=== PATIENT | female | born 1950 ===

== ENCOUNTER 2017-10-21 18:48 | Emergency (ER) | payer MEDICARE, OTHER ==
[~2017-10-21] VITALS: Ht 157.5 cm; Wt 83.9 kg
[2017-10-21] MEDS ORDERED: GLIP10TA13 (19:03)
[2017-10-21] MEDS ORDERED: METO-387 (19:03)
[2017-10-21] MEDS ORDERED: PRAV80TA2 (19:03)
[2017-10-21] MEDS ORDERED: METF10002 (19:03)
[2017-10-21] MEDS ORDERED: LEVO137T2 (19:03)
[2017-10-21] MEDS ORDERED: LISI10TA2 (19:03)
--- NOTE | 2017-10-21 19:08 | ED Integumentary General ---
General Chief Complaint: Bite-Animal/Human/Insect Stated Complaint: R ARM BITE Source: patient, family (grandson) Exam Limitations: no limitations History of Present Illness Date Seen by Provider: Oct 21, 2017 Time Seen by Provider: 18:59 Initial Comments Patient presents to ER by private conveyance with chief complaint that 2 days ago while carrying her groceries out from a grocery store she noticed a red swelling welt on the anterior right forearm. She does have diabetes but she does not use insulin. She's never had abscesses before. She says it started welling up eating red hot and painful. She has full sensation and use of her distal extremity. She is having no fevers or chills. She does not smoke. She has no allergies to medicines or other significant medical history. Allergies and Home Medications Allergies Coded Allergies: Penicillins (Verified Allergy, Unknown, 10/21/17) Patient Home Medication List Home Medication List Reviewed: Yes Constitutional: No chills, No diaphoresis EENTM: No ear pain, No eye pain Respiratory: No cough, No hemoptysis Cardiovascular: No chest pain, No palpitations Gastrointestinal: No abdominal pain, No nausea Genitourinary: No discharge, No dysuria Musculoskeletal: No back pain, No joint pain Skin: see HPI Past Fidwfzm-Dbgsoi-Goscun Hx Patient Social History Alcohol Use: Denies Use Recreational Drug Use: No Smoking Status: Never a Smoker Recent Foreign Travel: No Contact w/Someone Who Travel: No Physical Exam Vital Signs Vital Signs - First Documented 10/21/17 18:50 Temp 98.6 Pulse 96 Resp 18 B/P (MAP) 145/91 (109) Pulse Ox 98 O2 Delivery Room Air Capillary Refill : General Appearance: WD/WN, no apparent distress HEENT: PERRL/EOMI, normal ENT inspection, TMs normal, pharynx normal Neck: non-tender, full range of motion Cardiovascular: normal peripheral pulses, regular rate, rhythm Respiratory: no respiratory distress, no accessory muscle use Gastrointestinal: normal bowel sounds, non tender, soft Extremities: normal range of motion, normal capillary refill Neurologic/Psychiatric: alert, normal mood/affect, oriented x 3 Skin: rash (red erythematous swelling and nodule in the front anterior right upper extremity about detention down the radius with a one half senna meter nodule of induration/fluctuance consistent with abscess.) Procedures/Interventions I&D : Site: anterior right forearm Blade Size: 11 I & D Procedure: betadine prep (chlorhexidine soap water) Progress Patient's wound was cleaned thoroughly with chlorhexidine soap water and dried. We then used a 25-gauge 1 inch needle to infiltrate 2 cc and a ring block fashion around the abscess pore. When the patient was ascertained to be numb we used an 11 blade to make a cross potts incision and cut off the corners and expressed about 1-2 cc of white purulent material. Patient tolerates procedure very well. A loose gauze dressing was placed. Progress/Results/Core Measures Results/Orders My Orders Orders - SERENITY STERN Lidocaine 1% Inj 20 Ml (Xylocaine 1% Inj (10/21/17 19:15) Medications Given in ED Current Medications Medications Dose Ordered Sig/Donnie Route Start Time Stop Time Status Last Admin Dose Admin Lidocaine HCl 20 ml ONCE ONCE INJ 10/21/17 19:15 10/21/17 19:16 DC 10/21/17 19:08 20 ML Vital Signs/I&O 10/21/17 18:50 Temp 98.6 Pulse 96 Resp 18 B/P (MAP) 145/91 (109) Pulse Ox 98 O2 Delivery Room Air Progress Progress Note : Time: 19:07 Progress Note Plan to I&D and put her on Bactrim. Departure Impression Primary Impression: Abscess Disposition: 01 HOME, SELF-CARE Condition: Improved Departure-Patient Inst. Decision time for Depature: 19:18 Referrals: NO,LOCAL PHYSICIAN (PCP/Family) Primary Care Physician Patient Instructions: Abscess Incision and Drainage (DC) Add. Discharge Instructions: Keep the wound clean with regular soap and water. Do not use hydrogen peroxide, alcohol or iodine as this will kill your own skin cells are trying to heal the wound. He will slowly heal over the next couple days from the inside out. You may use a light gauze dressing to keep it from losing on your clothing but otherwise encourage air to get the wound when possible. 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 Follow up with your primary care doctor if you're not seeing some improvement over the next 3-5 days. If you begin to have fevers chills nausea or vomiting you should return to your doctor sooner. All discharge instructions reviewed with patient and/or family. Voiced understanding. Scripts Sulfamethoxazole/Trimethoprim (Bactrim Ds Tablet) 1 Each Tablet 1 EACH PO BID for 5 Days, #10 TAB 0 Refills Prov: SERENITY STERN 10/21/17 SERENITY STERN Oct 21, 2017 19:08
[2017-10-21] MEDS ORDERED: LIDOCAINE 1% INJ 20 ML 20 ML VIAL INJ ONE (19:15)
[2017-10-21] MEDS ORDERED: SULF1TAB35 PO (19:20)
[2017-10-21 19:24] VITALS: BP 145/91
--- OUTSIDE RECORDS SUMMARY | 2017-10-21 19:37 | XMS REPORT | Continuity of Care Document ---
Author Author [facility] Organization [facility] Address [address] [place] [id number] Support Name Relationship Address Phone ALIA STEINBERG MD Caregiver [address] [place] [address] [employer] JOSUE Next Of Kin [address] [address] Insurance Providers Guarantor Liz Alejandre Address [address] [address] Email [email or web address] Payer Medicare Policy Number [id number] Subscriber's Name Liz Alejandre Relationship 18 Self/Same As Patient Payer Medicaid [place] Policy Number [id number] Subscriber's Name PiliLiz Relationship 18 Self/Same As Patient Advance Directives Directive Response Recorded Date/Time Advance Directives No 03/28/11 2:13pm Living Will No 03/28/11 2:13pm Power of Overhead Foreman for Healthcare No 03/28/11 2:13pm Problems Medical Problem Onset Date Status Acquired hypothyroidism 04/16/2013 Acute Acute bacterial tonsillitis Unknown Acute upper respiratory infection Unknown Acute Benign essential hypertension Unknown Acute Bilateral elbow joint pain Unknown Diabetes mellitus type 2 in obese 04/16/2013 Acute Dry skin dermatitis Unknown Acute Elbow pain, left Unknown Hyperlipidemia Unknown Acute Maxillary sinusitis, acute Unknown Seborrheic dermatitis of scalp Unknown Acute Tonsillitis Unknown Medications Current Home Medications Medication Dose Units Route Directions Days Qty Instructions Start Date Cyclobenzaprine Hcl 5 Mg Tablet 5 Mg Oral Three (3) Times A Day as needed for Muscle Spasms 90 Tab 06/30/17 Glipizide 10 Mg Tablet 10 Mg Oral Two (2) Times A Day 180 Tab 07/27 Hydrocodone/Acetaminophen ([place] 5-325 Tablet) 5 Mg-325 Mg Tablet 1 Tab Oral Every Eight (8) Hours as needed for Pain 10 Days 30 Tab 07/26/17 Levofloxacin 500 Mg Tablet 500 Mg Oral Daily 10 Days 10 Tab 07/26/17 Levothyroxine Sodium 137 Mcg Tablet 137 Mcg Oral Daily Before Breakfast 90 Tab 07/20/17 Lisinopril 10 Mg Tablet 10 Mg Oral Daily 90 Days 90 Tab 01/06/17 Metformin Hcl 1,000 Mg Tablet 1,000 Mg Oral Two (2) Times A Day 180 Tab 04/20/17 Methylprednisolone (Medrol) 4 Mg Tab.ds.pk 1 Tab Oral As Directed 1 Pack 07/12/17 Methylprednisolone 4 Mg Tab.ds.pk Metoprolol Succinate 25 Mg Tab.er.24h 25 Mg Oral Daily 90 Tab 07/27 Pravastatin Sodium 80 Mg Tablet 80 Mg Oral Daily 90 Tab 07/20/17 Sitagliptin Phosphate (Januvia) 100 Mg Tablet 100 Mg Oral Daily 90 Tab 07/20/17 Past Home Medications Medication Directions Ordered Status Azithromycin 250 Mg Tablet, 250 Mg Oral Daily 04/04/17 Discontinued Azithromycin (Zithromax*) 250 Mg Tab, 250 Mg Oral As Directed as needed for Infection 06/02/15 Discontinued Azithromycin (Zithromax) 250 Mg Tab, 250 Mg Oral As Directed as needed for Infection 03/19/15 Discontinued Azithromycin (Azithromycin*) 250 Mg Tab, 250 Mg Oral As Directed as needed for Infection 02/13/15 Discontinued Azithromycin (Azithromycin*) 250 Mg Tab, 250 Mg Oral As Directed 06/12/13 Discontinued Azithromycin (Azithromycin*) 250 Mg Tab, 250 Mg Oral As Directed 04/30/13 Discontinued Benzonatate (Tessalon Perle) 100 Mg Capsule, 200 Mg Oral Three (3) Times A Day as needed for Cough 02/01/17 Discontinued Benzonatate (Tessalon Perle) 100 Mg Cap, 100 Mg Oral Every 8 Hours As Needed as needed for Cough 06/02/15 Discontinued Benzonatate (Tessalon Perle) 100 Mg Cap, 100 Mg Oral Every 8 Hours As Needed as needed for Cough 03/19/15 Discontinued Canagliflozin (Invokana) 300 Mg Tablet, 300 Mg Oral Daily 07/28/16 Discontinued Cephalexin (Keflex) 500 Mg Capsule, 500 Mg Oral Every Twelve (12) Hours 07/28 Discontinued Ciclopirox (Penlac) 8 % Debbie, 8 % External As Directed 08/12/15 Discontinued Clindamycin Hcl (Clindamycin Hcl*) 300 Mg Cap, 300 Mg Oral Every 8 Hours 12/09 Discontinued Doxycycline Hyclate (Doxycycline Hyclate*) 100 Mg Cap, 100 Mg Oral Two (2) Times A Day 07/29/15 Discontinued Doxycycline Hyclate (Doxycycline Hyclate*) 100 Mg Cap, 100 Mg Oral Two (2) Times A Day 06/06/15 Discontinued Fenofibrate (Tricor*) 48 Mg Tab, 48 Mg Oral Daily 12/10/15 Discontinued Fenofibrate (Tricor*) 48 Mg Tab, 48 Mg Oral Daily Discontinued Fenofibrate (Tricor*) 48 Mg Tab, 48 Mg Oral Daily 04/12/14 Discontinued Fenofibrate (Tricor*) 48 Mg Tab, 48 Mg Oral Daily 12/03/13 Discontinued Fenofibrate (Tricor*) 48 Mg Tab, 48 Mg Oral Daily 06/21/13 Discontinued Fenofibrate (Tricor*) 48 Mg Tab, 48 Mg Oral Daily 04/17/13 Discontinued Fenofibrate Nanocrystallized (Tricor) 48 Mg Tablet, 48 Mg Oral Daily Discontinued Fluticasone Propionate (Flonase Allergy Relief*) 50 Mcg/Act Spr, 2 Sprays Nasal Daily 06/06/15 Discontinued Glipizide 5 Mg Tablet, 5 Mg Oral As Directed Discontinued Glipizide (Glipizide*) 5 Mg Tab, 5 Mg Oral As Directed 10/20/15 Discontinued Glipizide (Glipizide*) 5 Mg Tab, 5 Mg Oral As Directed 08/14/15 Discontinued Glipizide (Glipizide*) 5 Mg Tab, 5 Mg Oral As Directed 07/29/15 Discontinued Glipizide (Glipizide*) 5 Mg Tab, 5 Mg Oral As Directed 03/01/14 Discontinued Glipizide (Glipizide*) 5 Mg Tab, 5 Mg Oral As Directed Discontinued Hydrocodone/Acetaminophen ([place] 5-325 Tablet) 5 Mg-325 Mg Tablet, 1 Tab Oral Every Eight (8) Hours as needed for Pain 07/12/17 Discontinued Hydrocodone/Acetaminophen (Hydrocodone-Acetamin 5-325 Mg) 5 Mg-325 Mg Tablet, Discontinued Hydroxyzine Hcl (Atarax*) 25 Mg Tab, 25 Mg Oral 3 Times Daily As Needed as needed for Anxiety 11/20/13 Discontinued Hydroxyzine Hcl (Atarax*) 25 Mg Tab, 25 Mg Oral Every 6 Hours As Needed as needed for Anxiety 12/04/13 Discontinued Levofloxacin (Levaquin) 500 Mg Tablet, 500 Mg Oral Daily 02/01/17 Discontinued Levofloxacin (Levaquin) 500 Mg Tablet, 500 Mg Oral Daily 11/09/16 Discontinued Levofloxacin (Levaquin) 500 Mg Tab, 500 Mg Oral Daily 09/30/15 Discontinued Levothyroxine Sodium 137 Mcg Tablet, 137 Mcg Oral Daily Before Breakfast 03/14 Discontinued Levothyroxine Sodium 137 Mcg Tablet, 137 Mcg Oral Daily Before Breakfast 11/11 Discontinued Levothyroxine Sodium 150 Mcg Tablet, 150 Mcg Oral Daily 10/26/16 Discontinued Levothyroxine Sodium 150 Mcg Tablet, 150 Mcg Oral Daily 07/28/16 Discontinued Levothyroxine Sodium 112 Mcg Tablet, 112 Mcg Oral Daily Discontinued Levothyroxine Sodium (Levothyroxine Sodium*) 112 Mcg Tab, 112 Mcg Oral Daily 08/14/15 Discontinued Levothyroxine Sodium (Levothyroxine Sodium*) 125 Mcg Tab, 125 Mcg Oral Daily 07/29/15 Discontinued Levothyroxine Sodium (Levothyroxine Sodium*) 125 Mcg Tab, 125 Mcg Oral Daily 03/01/14 Discontinued Levothyroxine Sodium (Levothyroxine Sodium*) 125 Mcg Tab, 125 Mcg Oral Daily 06/21/13 Discontinued Levothyroxine Sodium (Levothyroxine Sodium*) 125 Mcg Tab, 125 Mcg Oral Daily Discontinued Lisinopril 10 Mg Tablet, 10 Mg Oral Daily 01/06/17 Discontinued Lisinopril 10 Mg Tablet, 10 Mg Oral Daily Discontinued Lisinopril (Lisinopril*) 10 Mg Tab, 10 Mg Oral Daily 02/02/16 Discontinued Lisinopril (Lisinopril*) 10 Mg Tab, 10 Mg Oral Daily 07/29/15 Discontinued Lisinopril (Lisinopril*) 10 Mg Tab, 10 Mg Oral Daily 03/01/14 Discontinued Lisinopril (Lisinopril*) 10 Mg Tab, 10 Mg Oral Daily 06/21/13 Discontinued Lisinopril (Lisinopril*) 10 Mg Tab, 10 Mg Oral Daily Discontinued Metformin Hcl 1,000 Mg Tablet, 1000 Mg Oral Two (2) Times A Day 07/28/16 Discontinued Metformin Hcl 500 Mg Tablet, 1000 Mg Oral Two (2) Times A Day 06/01/16 Discontinued Metformin Hcl (Metformin Hcl*) 500 Mg Tab, 1000 Mg Oral Two (2) Times A Day 07/29/15 Discontinued Metformin Hcl (Metformin Hcl*) 500 Mg Tab, 500 Mg Oral As Directed 12/03/13 Discontinued Metformin Hcl (Metformin Hcl*) 500 Mg Tab, 1000 Mg Oral Two (2) Times A Day 06/21/13 Discontinued Metformin Hcl (Metformin Hcl*) 500 Mg Tab, 1000 Mg Oral Two (2) Times A Day Discontinued Methylprednisolone 4 Mg Tab, 4 Mg Oral As Directed 06/12/13 Discontinued Methylprednisolone Acetate (Depo-Medrol) 80 Mg/Ml Inj, 80 Mg Intramuscular Once 06/06/15 Discontinued Metoprolol Succinate 25 Mg Tab.er.24h, 25 Mg Oral Daily Discontinued Metoprolol Succinate 25 Mg Tab, 25 Mg Oral Daily 02/03/16 Discontinued Metoprolol Succinate 25 Mg Tab, 25 Mg Oral Daily 07/29/15 Discontinued Metoprolol Succinate 25 Mg Tab, 25 Mg Oral Daily 03/01/14 Discontinued Metoprolol Succinate 25 Mg Tab, 25 Mg Oral Daily 09/17/13 Discontinued Metoprolol Succinate 25 Mg Tab, 25 Mg Oral Daily 06/21/13 Discontinued Metoprolol Succinate 25 Mg Tab, 25 Mg Oral Daily Discontinued Permethrin (Elimite Cr*) 5 % Cre, 1 Apply External Once 12/04/13 Discontinued Pravastatin Sodium 80 Mg Tablet, 80 Mg Oral Daily 01/06/17 Discontinued Pravastatin Sodium 80 Mg Tablet, 80 Mg Oral Daily 10/26/16 Discontinued Pravastatin Sodium 80 Mg Tablet, 80 Mg Oral Daily 07/28/16 Discontinued Pravastatin Sodium 40 Mg Tablet, 40 Mg Oral Bedtime Discontinued Pravastatin Sodium (Pravastatin Sodium*) 40 Mg Tab, 40 Mg Oral Daily At Bedtime 07/29/15 Discontinued Pravastatin Sodium (Pravastatin Sodium*) 20 Mg Tab, 40 Mg Oral Bedtime Discontinued Pravastatin Sodium (Pravastatin Sodium*) 20 Mg Tab, 40 Mg Oral Bedtime Discontinued Pravastatin Sodium (Pravastatin Sodium*) 20 Mg Tab, 40 Mg Oral Bedtime Discontinued Promethazine Hcl/Codeine (Promethazine-Codeine Syrup) 120 Ml Syrp, 5 Ml Oral Daily At Bedtime as needed for Cough 02/13/15 Discontinued Sitagliptin Phosphate (Januvia) 100 Mg Tablet, 100 Mg Oral Daily 04/20/17 Discontinued Sitagliptin Phosphate (Januvia) 100 Mg Tablet, 100 Mg Oral Daily 01/06/17 Discontinued Sitagliptin Phosphate (Januvia) 100 Mg Tablet, 100 Mg Oral Daily 10/07/16 Discontinued Synthroid Unk Dose , Oral Daily Discontinued Terbinafine Hcl (Lamisil*) 250 Mg Tab, 250 Mg Oral Daily Discontinued Triamcinolone Acetonide (Triamcinolone Acetonide 0.1% Cream*) 0.1 Cr, 1 Bernadette External Two (2) Times A Day 03/26/16 Discontinued Trimethoprim/Sulfamethoxazole (Sulfamethoxazole-Tmp Ds Tablet) 1 Tab Tab, 1 Tab Oral Two (2) Times A Day 11/20/13 Discontinued White Bp Pill , Oral Daily Discontinued Family History Relationship Condition Age at Onset Recorded Date/Time Brother Family history: Diabetes mellitus Not Recorded 04/16/2013 9:54am Father Family history: Hypertension Not Recorded 04/16/2013 9:53am Sister Family history: Cardiovascular disease Not Recorded 04/16/2013 9:54am Sister Family history: Diabetes mellitus Not Recorded 04/16/2013 9:54am Sister Family history: Hypertension Not Recorded 04/16/2013 9:53am Social History Social History Problem Response Recorded Date/Time Onset Date Status Alcohol use None 07/26/2017 4:42pm Not Applicable Not Applicable Recreational drug use None 07/26/2017 4:42pm Not Applicable Not Applicable Smoking Status Start Date Stop Date Never Smoker Hospital Discharge Instructions Current inpatient/outpatient. Discharge instructions are currently unavailable. Plan of Care Current inpatient/outpatient. The plan of care is currently unavailable. Functional Status No functional status information available. 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 Pneumococcal conj, 13 Valent Vaccine (Adult) 03/14/17 Administered 1 Zoster Vaccine 12/26/16 Administered 1 Query Response on File Recorded Date/Time Hx Pneumococcal Vaccination No 03/24/15 4:19pm Hx Influenza Vac This Flu Season No 03/24/15 4:19pm Vital Signs Ambulatory Vital Signs Vital Response Date/Time Height 5 ft 2 in 07/26/2017 1:12pm Weight 186 lbs 8 oz 07/26/2017 1:12pm Temperature, Temporal 99.6 degrees F 07/26/2017 1:12pm Blood Pressure, Sitting, Right Arm 124/70 mm Hg 07/26/2017 1:12pm Pulse Rate 88 bpm 07/26/2017 1:12pm Respiration Rate 15 bpm 07/26/2017 1:12pm Body Surface Area 1.96 m2 07/26/2017 1:12pm Body Mass Index 34.1 kg/m2 07/26/2017 1:12pm Pulse Oximetry Pulse Oximetry 07/26/2017 1:12pm Results Laboratory Results Test Name Result Units Flags Reference Collection Date/Time Result Date/ Time Comments Urine Microalbumin 0.7 mg/dL <1.9 07/27/2016 10:33am 07/27/2016 10: 56am Sodium Level 141 mEq/L 135-145 11/01/2016 11:10am 11/01/2016 11:48am Potassium Level 4.4 mEq/L 3.5-5.1 11/01/2016 11:10am 11/01/2016 11: 48am Chloride Level 106 mEq/L 98-113 11/01/2016 11:10a11/01/2016 11:48am Carbon Dioxide Level 25 mEq/L 20-31 11/01/2016 11:10am 11/01/2016 11: 51am Anion Gap 10 mEq/L 7-16 11/01/2016 11:10am 11/01/2016 11:51am Blood Urea Nitrogen 16 mg/dL 8.0-21.0 11/01/2016 11:10am 11/01/2016 11: 55am Random Glucose 92 mg/dL 70-115 11/01/2016 11:10a11/01/2016 12:00pm Creatinine 0.8 mg/dl 0.57-1.11 11/01/2016 11:10am 11/01/2016 11:54am Estimated GFR (Non- > 60 11/01/2016 11:10a2016 11:54am NORMAL eGFR: >=60 ml/min/1.73 m2 KIDNEY DISEASE: < 60 ml/min/1.73 m2 KIDNEY FAILURE: < 15 ml/min/1.73 m2 SOURCE: NKDEP (National Kidney Disease Education Program).NIH.GOV Calcium Level 9.7 mg/dL 8.6-10.6 11/01/2016 11:11/01/2016 11:49am Aspartate Amino Transf (AST/SGOT) 17 IU/L 5-34 11/01/2016 11:11/01 11:55am Alanine Aminotransferase (ALT/SGPT) 16 IU/L 6-55 11/01/2016 11:09/2016 11:57am Alkaline Phosphatase 75 IU/L 40-150 11/01/2016 11:11/01/2016 11: 54am Total Bilirubin 0.4 mg/dL 0.3-1.2 11/01/2016 11:11/01/2016 11: 54am PLEASE NOTE NEW REFERENCE RANGES OF 10/07/16. Total Protein 6.9 gm/dL 6.0-8.3 11/01/2016 11:11/01/2016 11:50am Albumin 4.1 gm/dL 3.4-4.8 11/01/2016 11:11/01/2016 11:48am Total Cholesterol 180 mg/dL < 200 11/01/2016 11:11/01/2016 11: 55am Triglycerides Level 324 mg/dL H <150 11/01/2016 11:11/01/2016 12: 00pm HDL Cholesterol 49 mg/dL >60 11/01/2016 11:11/01/2016 11:56am LDL Cholesterol 98 mg/dL <100 11/01/2016 11:11/01/2016 11:56am Very Low Density Lipoproteins 64.8 11/01/2016 11:11/01/2016 11 :50am Thyroid Stimulating Hormone (TSH) 0.03 uUI/ml L 0.35-4.94 11/01/2016 11: 11/01/2016 12:35pm Hemoglobin A1c 7.3 % H 11/01/2016 11:11/01/2016 11:46am For the purpose of screening for the presence of diabetes. <5.7% Consistent with arnie absence of diabetes. 5.7-6.4% Consistent with increased risk for diabetes (prediabetes). >or=6.5% Consistent with diabetes. Estimated Average Glucose (eAG) 163 11/01/2016 11:11/01/2016 11:33am Estimated Average Glucose (EAG) result is reported as per recommendation from the [place] [employer] and Clinical Organizations. Ambulatory Laboratory Results Test Name Result Units Flags Reference Result Date/Time Comments Bedside Glucose 299 mg/dL H 70-105 11/20/2013 10:44am Group A Streptococcus Rapid Negative 07/26/2017 2:15pm Influenza Type A (Rapid) Negative 07/26/2017 2:14pm Influenza Type B (Rapid) Negative 07/26/2017 2:14pm Procedures Procedure Status Date Provider(s) ROUTINE VENIPUNCTURE Completed 07/27/16 LIPID PANEL Completed 07/27/16 ASSAY THYROID STIM HORMONE Completed 07/27/16 GLYCOSYLATED HEMOGLOBIN TEST Completed 07/27/16 COMPREHEN METABOLIC PANEL Completed 07/27/16 UR ALBUMIN QUANTITATIVE Completed 07/27/16 ASSAY OF URINE CREATININE Completed 07/27/16 ROUTINE VENIPUNCTURE Completed 11/01/16 LIPID PANEL Completed 11/01/16 ASSAY THYROID STIM HORMONE Completed 11/01/16 GLYCOSYLATED HEMOGLOBIN TEST Completed 11/01/16 COMPREHEN METABOLIC PANEL Completed 11/01/16 X-RAY EXAM OF ELBOW Completed 06/30/17 X-RAY EXAM NECK SPINE 4/5VWS Completed 07/12/17 X-ray of left elbow, two views Completed 06/30/17 ARIELLE FIGUEROA MD X-ray of cervical spine, four views Completed 07/12/17 ALIA STEINBERG MD Encounters Encounter Location Arrival/Admit Date Discharge/Depart Date Attending Provider Registered Practice [facility] 07/26/17 1:00pm ARIELLE FIGUEROA MD Office Visit Family Med [address] - [facility] 07/26/17 1:00pm ARIELLE FIGUEROA MD Office Visit Ortho [address] 07/26/17 8:00am ALIA STEINBERG MD Registered Referred [facility] 07/12/17 9:23am ALIA STEINBERG MD Office Visit Ortho [address] 07/12/17 9:00am ALIA STEINBERG MD Office Visit Family Med [address] - [facility] 07/07/17 10:00am ARIELLE FIGEUROA MD Registered Referred [facility] 06/30/17 4:42pm ARIELLE FIGUEROA MD Office Visit Family Med [address] - [place] 06/30/17 3:15pm ARIELLE FIGUEROA MD Office Visit Family Med [address] - [place] 04/04/17 2:00pm ARIELLE FIGUEROA MD Office Visit Family Med [address] [facility] 02/01/17 4:00pm ARIELLE FIGUEROA MD Office Visit Family Med [address] [facility] 11/09/16 9:15am ARIELLE FIGUEROA MD Registered Referred [facility] 11/01/16 10:44am ARIELLE FIGUEROA MD Office Visit Family Med [address] [facility] 11/01/16 9:30am ARIELLE FIGUEROA MD Office Visit Family Med [address] [facility] 10/07/16 1:45pm ARIELLE FIGUEROA MD Office Visit Family Med [address] [facility] 08/25/16 10:00am ARIELLE FIGUEROA MD Office Visit Family Med [address] [facility] 07/28/16 11:30am ARIELLE FIGUEROA MD Registered Referred [facility] 07/27/16 10:22am ARIELLE FIGUEROA MD Office Visit Family Med [address] [facility] 07/27/16 9:45am ARIELLE FIGUEROA MD
--- OUTSIDE RECORDS SUMMARY | 2017-10-21 19:37 | XMS REPORT | Continuity of Care Document ---
Author Author [facility] Organization [facility] Address [address] [place] [address] Phone Unavailable Care Team Providers Care Outboard Motor Assembler Name Role Phone UNKNOWN PCP Unavailable Insurance Providers Guarantor Liz Escobar Address [address] [facility] [place] [address] Email [email or web address] Payer Medicare Policy Number [id number] Subscriber's Name Liz Escobar Relationship 18 Self/Same As Patient Advance Directives Directive Response Recorded Date/Time Advance Directives No 03/28/11 2:13pm Living Will No 03/28/11 2:13pm Power of Bumper Machine Operator for Healthcare No 03/28/11 2:13pm Problems Medical Problem Onset Date Status Acquired hypothyroidism 04/16/2013 Acute Acute upper respiratory infection Unknown Acute Benign essential hypertension Unknown Acute Diabetes mellitus type 2 in obese 04/16/2013 Acute Dry skin dermatitis Unknown Acute Hyperlipidemia Unknown Acute Seborrheic dermatitis of scalp Unknown Acute Tonsillitis Unknown Medications Current Home Medications Medication Dose Units Route Directions Days Qty Instructions Start Date Glipizide 10 Mg Tablet 10 Mg Oral Two (2) Times A Day 180 Tab 07/27 Levothyroxine Sodium 150 Mcg Tablet 150 Mcg Oral Daily 90 Tab 07/28 Lisinopril 10 Mg Tablet 10 Mg Oral Daily 90 Tab Metformin Hcl 1,000 Mg Tablet 1,000 Mg Oral Two (2) Times A Day 180 Tab 07/28/16 Metoprolol Succinate 25 Mg Tab.er.24h 25 Mg Oral Daily 90 Tab 07/27 Pravastatin Sodium 80 Mg Tablet 80 Mg Oral Daily 90 Tab 07/28/16 Sitagliptin Phosphate (Januvia) 100 Mg Tablet 100 Mg Oral Daily 90 Tab 10/07/16 Past Home Medications Medication Directions Ordered Status Azithromycin (Zithromax*) 250 Mg Tab, 250 Mg [...] 04/30/13 Discontinued Benzonatate (Tessalon Perle) 100 Mg Cap, [...] Tab, 5 Mg Oral As Directed Discontinued Hydroxyzine Hcl (Atarax*) 25 Mg Tab, 25 Mg Oral 3 Times Daily As Needed as needed for Anxiety 11/20/13 Discontinued Hydroxyzine Hcl (Atarax*) 25 Mg Tab, 25 Mg Oral Every 6 Hours As Needed as needed for Anxiety 12/04/13 Discontinued Levofloxacin (Levaquin) 500 Mg Tab, 500 Mg Oral Daily 09/30/15 Discontinued Levothyroxine Sodium 112 Mcg Tablet, 112 [...] Tab, 125 Mcg Oral Daily Discontinued Lisinopril (Lisinopril*) 10 Mg Tab, 10 Mg Oral Daily 02/02/16 Discontinued Lisinopril (Lisinopril*) 10 Mg Tab, 10 Mg Oral Daily 07/29/15 Discontinued Lisinopril (Lisinopril*) 10 Mg Tab, 10 Mg Oral Daily 03/01/14 Discontinued Lisinopril (Lisinopril*) 10 Mg Tab, 10 Mg Oral Daily 06/21/13 Discontinued Lisinopril (Lisinopril*) 10 Mg Tab, 10 Mg Oral Daily Discontinued Metformin Hcl 500 Mg Tablet, 1000 [...] Apply External Once 12/04/13 Discontinued Pravastatin Sodium 40 Mg Tablet, 40 [...] Bedtime as needed for Cough 02/13/15 Discontinued Synthroid Unk Dose , Oral Daily [...] Date/Time Onset Date Status Alcohol use None 10/07/2016 4:15pm Not Applicable Not Applicable Recreational drug use None 10/07/2016 4:15pm Not Applicable Not Applicable Smoking Status Start Date Stop Date Never Smoker Hospital Discharge Instructions Current inpatient/outpatient. Discharge instructions are currently unavailable. Plan of Care Current inpatient/outpatient. The plan of care is currently unavailable. Functional Status No functional status information available. Allergies, Adverse Reactions, Alerts Allergen Type Severity Reaction Status Last Updated Penicillins ([id number]) Allergy Intermediate Rash Active 10/07/16 Immunizations Query Response on File Recorded Date/Time Hx Pneumococcal Vaccination No 03/24/15 4:19pm Hx Influenza Vac This Flu Season No 03/24/15 4:19pm Vital Signs Ambulatory Vital Signs Vital Response Date/Time Height 5 ft 2 in 10/07/2016 1:54pm Weight 187 lbs 10/07/2016 1:54pm Temperature, Oral 98.3 degrees F 10/07/2016 1:54pm Blood Pressure, Sitting, Right Arm 112/76 mm Hg 10/07/2016 1:54pm Pulse Rate 75 bpm 10/07/2016 1:54pm Respiration Rate 16 bpm 10/07/2016 1:54pm Body Surface Area 1.96 m2 10/07/2016 1:54pm Body Mass Index 34.2 kg/m2 10/07/2016 1:54pm Pulse Oximetry Pulse Oximetry 10/07/2016 1:54pm Results Laboratory Results Test Name Result Units Flags Reference Collection Date/Time Result Date/ Time Comments Sodium Level 136 mEq/L 135-145 07/27/2016 10:3307/27/2016 11:09am Potassium Level 4.6 mEq/L 3.5-5.1 07/27/2016 10:3307/27/2016 11: 09am Chloride Level 101 mEq/L 98-113 07/27/2016 10:3307/27/2016 11:09am Carbon Dioxide Level 24 mEq/L 20-31 07/27/2016 10:3307/27/2016 11: 13am Anion Gap 11 mEq/L 7-16 07/27/2016 10:3307/27/2016 11:13am Blood Urea Nitrogen 15 mg/dL 8.0-21.0 07/27/2016 10:3307/27/2016 11: 14am Random Glucose 345 mg/dL H 70-115 07/27/2016 10:3307/27/2016 11:10am Creatinine 1.0 mg/dl 0.57-1.11 07/27/2016 10:3307/27/2016 11:13am Estimated GFR (Non- 56 07/27/2016 10:332016 11:13am NORMAL eGFR: >=60 ml/min/1.73 m2 KIDNEY DISEASE: < 60 ml/min/1.73 m2 KIDNEY FAILURE: < 15 ml/min/1.73 m2 SOURCE: NKDEP (National Kidney Disease Education Program).NIH.GOV Calcium Level 9.0 mg/dL 8.6-10.6 07/27/2016 10:33am 07/27/2016 11:09am Aspartate Amino Transf (AST/SGOT) 19 IU/L 5-34 07/27/2016 10:3307/27 11:15am Alanine Aminotransferase (ALT/SGPT) 26 IU/L 6-55 07/27/2016 10:3304/2016 11:19am Alkaline Phosphatase 124 IU/L 40-150 07/27/2016 10:3307/27/2016 11: 13am Total Bilirubin 0.7 mg/dL 0.2-1.2 07/27/2016 10:33am 07/27/2016 11: 13am Total Protein 7.1 gm/dL 6.0-8.3 07/27/2016 10:33am 07/27/2016 11:09am Albumin 4.3 gm/dL 3.4-4.8 07/27/2016 10:33am 07/27/2016 11:09am Total Cholesterol 235 mg/dL H < 200 07/27/2016 10:33am 07/27/2016 11: 14am Triglycerides Level 348 mg/dL H <150 07/27/2016 10:33am 07/27/2016 11: 09am HDL Cholesterol 55 mg/dL >60 07/27/2016 10:33am 07/27/2016 11:19am LDL Cholesterol 130 mg/dL H <100 07/27/2016 10:33am 07/27/2016 11:19am Very Low Density Lipoproteins 69.6 07/27/2016 10:33am 07/27/2016 11 :09am Thyroid Stimulating Hormone (TSH) 12.17 uUI/ml H 0.35-4.94 07/27/2016 10: 33am 07/27/2016 11:50am Urine Microalbumin 0.7 mg/dL <1.9 07/27/2016 10:33am 07/27/2016 10: 56am Hemoglobin A1c 12.2 % H 07/27/2016 10:33am 07/27/2016 11:07am For the purpose of screening for the presence of diabetes. <5.7% Consistent with arnie absence of diabetes. 5.7-6.4% Consistent with increased risk for diabetes (prediabetes). >or=6.5% Consistent with diabetes. Estimated Average Glucose (eAG) 303 07/27/2016 10:33am 07/27/2016 11:07am Estimated Average Glucose (EAG) result is reported as per recommendation from the [place] [employer] and Clinical Organizations. Ambulatory Laboratory Results Test Name Result Units Flags Reference Result Date/Time Comments Bedside Glucose 299 mg/dL H 70-105 11/20/2013 10:44am Procedures Procedure Status Date Provider(s) ROUTINE VENIPUNCTURE Completed 07/27/16 LIPID PANEL Completed 07/27/16 ASSAY THYROID STIM HORMONE Completed 07/27/16 GLYCOSYLATED HEMOGLOBIN TEST Completed 07/27/16 COMPREHEN METABOLIC PANEL Completed 07/27/16 MICROALBUMIN QUANTITATIVE Completed 07/27/16 ASSAY OF URINE CREATININE Completed 07/27/16 Encounters Encounter Location Arrival/Admit Date Discharge/Depart Date Attending Provider Office Visit Family Med [address] - [facility] 10/07/16 1:45pm ARIELLE FIGUEROA MD Registered Practice [facility] 10/07/16 1:45pm ARIELLE FIGUEROA MD Office Visit Family Med [address] - [facility] 08/25/16 10:00am ARIELLE FIGUEROA MD Office Visit Family Med [address] - [facility] 07/28/16 11:30am ARIELLE FIGUEROA MD Registered Referred [facility] 07/27/16 10:22am ARIELLE FIGUEROA MD Office Visit Family Med [address] - [facility] 07/27/16 9:45am ARIELLE FIGUEROA MD Office Visit Family Med [address] - [facility] 03/26/16 8:30am ARIELLE FIGUEROA MD Recent Diagnosis Diabetes mellitus type 2 in obese
--- OUTSIDE RECORDS SUMMARY | 2017-10-21 19:37 | XMS REPORT | Continuity of Care Document ---
Author Author [facility] Organization [facility] Address [address] [place], [place] [id number] Phone Unavailable Care Team Providers Care Loaf Counter Name Role Phone UNKNOWN PCP Unavailable Insurance Providers Guarantor Liz Escobar Address [address] [facility] [address] [address] Email [email or web address] Payer Medicare Policy Number [id number] Subscriber's Name Liz Escobar Relationship 18 Self/Same As Patient Advance Directives Directive Response Recorded Date/Time Advance Directives No 03/28/11 2:13pm Living Will No 03/28/11 2:13pm Power of Performance Management Consultant for Healthcare No 03/28/11 2:13pm Problems Medical [...] Tablet 150 Mcg Oral Daily 90 Tab 10/26 Lisinopril 10 Mg Tablet 10 Mg Oral Daily 90 Tab Metformin Hcl 1,000 Mg Tablet 1,000 Mg Oral Two (2) Times A Day 180 Tab 07/28/16 Metoprolol Succinate 25 Mg Tab.er.24h 25 Mg Oral Daily 90 Tab 07/27 Pravastatin Sodium 80 Mg Tablet 80 Mg Oral Daily 90 Tab 10/26/16 Sitagliptin Phosphate (Januvia) 100 Mg Tablet 100 [...] Mg Oral Daily 09/30/15 Discontinued Levothyroxine Sodium 150 Mcg Tablet, 150 [...] Date/Time Onset Date Status Alcohol use None 11/01/2016 11:22am Not Applicable Not Applicable Recreational drug use None 11/01/2016 11:22am Not Applicable Not Applicable Smoking Status Start Date Stop Date Never Smoker Hospital Discharge Instructions Current inpatient/outpatient. Discharge instructions are currently unavailable. Plan of Care Current inpatient/outpatient. The plan of care is currently unavailable. Functional Status No functional status information available. Allergies, Adverse Reactions, Alerts Allergen Type Severity Reaction Status Last Updated Penicillins ([id number]) Allergy Intermediate Rash Active 11/01/16 Immunizations Query Response on File Recorded Date/Time Hx Pneumococcal Vaccination No 03/24/15 4:19pm Hx Influenza Vac This Flu Season No 03/24/15 4:19pm Vital Signs Ambulatory Vital Signs Vital Response Date/Time Height 5 ft 2 in 11/01/2016 9:52am Weight 182 lbs 6 oz 11/01/2016 9:52am Temperature, Temporal 98.0 degrees F 11/01/2016 9:52am Blood Pressure, Sitting, Right Arm 122/78 mm Hg 11/01/2016 9:52am Pulse Rate 73 bpm 11/01/2016 9:52am Respiration Rate 14 bpm 11/01/2016 9:52am Body Surface Area 1.94 m2 11/01/2016 9:52am Body Mass Index 33.4 kg/m2 11/01/2016 9:52am Pulse Oximetry Pulse Oximetry 11/01/2016 9:52am Results Laboratory Results Test Name Result Units Flags Reference Collection Date/Time Result Date/ Time Comments Sodium Level 136 mEq/L 135-145 07/27/2016 10:33am 07/27/2016 11:09am Potassium Level 4.6 mEq/L 3.5-5.1 07/27/2016 10:33am 07/27/2016 11: 09am Chloride Level 101 mEq/L 98-113 07/27/2016 10:33am 07/27/2016 11:09am Carbon Dioxide Level 24 mEq/L 20-31 07/27/2016 10:33am 07/27/2016 11: 13am Anion Gap 11 mEq/L 7-16 07/27/2016 10:33am 07/27/2016 11:13am Blood Urea Nitrogen 15 mg/dL 8.0-21.0 07/27/2016 10:33am 07/27/2016 11: 14am Random Glucose 345 mg/dL H 70-115 07/27/2016 10:33am 07/27/2016 11:10am Creatinine 1.0 mg/dl 0.57-1.11 07/27/2016 10:33am 07/27/2016 11:13am Estimated GFR (Non- 56 07/27/2016 10:33am 2016 11:13am NORMAL eGFR: >=60 ml/min/1.73 m2 KIDNEY DISEASE: < 60 ml/min/1.73 m2 KIDNEY FAILURE: < 15 ml/min/1.73 m2 SOURCE: NKDEP (National Kidney Disease Education Program).NIH.GOV Calcium Level 9.0 mg/dL 8.6-10.6 07/27/2016 10:33am 07/27/2016 11:09am Aspartate Amino Transf (AST/SGOT) 19 IU/L 5-34 07/27/2016 10:33am 07/27 11:15am Alanine Aminotransferase (ALT/SGPT) 26 IU/L 6-55 07/27/2016 10:33am 04/2016 11:19am Alkaline Phosphatase 124 IU/L 40-150 07/27/2016 10:33am 07/27/2016 11: 13am Total Bilirubin 0.7 mg/dL 0.2-1.2 [...] is reported as per recommendation from the [place] Diabetes Association and Clinical Organizations. Ambulatory Laboratory [...] Arrival/Admit Date Discharge/Depart Date Attending Provider Registered Referred [facility] 11/01/16 10:44am ARIELLE FIGUEROA MD Office Visit Family Med [address] - [place] 11/01/16 9:30am ARIELLE FIGUEROA MD Registered Practice [facility] 11/01/16 9:30am ARIELLE FIGUEROA MD Office Visit Family Med [address] - [facility] 10/07/16 1:45pm ARIELLE FIGUEROA MD Office Visit Family Med [address] - [facility] 08/25/16 10:00am ARIELLE FIGUEROA MD Office Visit Family Med [address] - [place] 07/28/16 11:30am ARIELLE FIGUEROA MD Registered Referred [facility] 07/27/16 10:22am ARIELLE FIGUEROA MD Office Visit Family Med [address] - [facility] 07/27/16 9:45am ARIELLE FIGUEROA MD Office Visit Family Med [address] - [place] 03/26/16 8:30am ARIELLE FIGUEROA MD
--- OUTSIDE RECORDS SUMMARY | 2017-10-21 19:38 | XMS REPORT | Continuity of Care Document ---
Author Author [facility] Organization [facility] Address [address] [place] [address] Care Team Providers Care Elementary Summer School Teacher Name Role Phone UNKNOWN PCP Unavailable Insurance Providers Guarantor Liz Alejandre Address [address] [place] [address] Email [email or web address] Payer Medicare Policy Number [id number] Subscriber's Name Liz Alejandre Relationship 18 Self/Same As Patient Payer Medicaid [place] Policy Number [id number] Subscriber's Name PiliLiz Relationship 18 Self/Same As Patient Advance Directives Directive Response Recorded Date/Time Advance Directives No 03/28/11 2:13pm Living Will No 03/28/11 2:13pm Power of Wrapper Leaf Inspector for Healthcare No 03/28/11 2:13pm Problems Medical Problem Onset Date Status Acquired hypothyroidism 04/16/2013 Acute Acute bacterial tonsillitis Unknown Acute upper respiratory infection Unknown Acute Benign essential hypertension Unknown Acute Diabetes mellitus type 2 in obese 04/16/2013 Acute Dry skin dermatitis Unknown Acute Hyperlipidemia Unknown Acute Maxillary sinusitis, acute Unknown Seborrheic dermatitis of scalp Unknown Acute Tonsillitis Unknown Medications Current Home Medications Medication Dose Units Route Directions Days Qty Instructions Start Date Azithromycin 250 Mg Tablet 250 Mg Oral Daily 6 Tab Take 2 tabs today, then 1 tab daily for the next 4 days. 04/04/17 Glipizide 10 Mg Tablet 10 Mg Oral Two (2) Times A Day 180 Tab 07/27 Levothyroxine Sodium 137 Mcg Tablet 137 Mcg Oral Daily Before Breakfast 90 Tab 11/02/16 Lisinopril 10 Mg Tablet 10 Mg Oral Daily 90 Days 90 Tab 01/06/17 Metformin Hcl 1,000 Mg Tablet 1,000 Mg Oral Two (2) Times A Day 180 Tab 07/28/16 Metoprolol Succinate 25 Mg Tab.er.24h 25 Mg Oral Daily 90 Tab 07/27 Pravastatin Sodium 80 Mg Tablet 80 Mg Oral Daily 90 Tab 01/06/17 Sitagliptin Phosphate (Januvia) 100 Mg Tablet 100 Mg Oral Daily 90 Tab 01/06/17 Past Home Medications Medication Directions Ordered Status [...] Date/Time Onset Date Status Alcohol use None 04/04/2017 4:39pm Not Applicable Not Applicable Recreational drug use None 04/04/2017 4:39pm Not Applicable Not Applicable Smoking Status Start Date Stop Date Never Smoker Hospital Discharge Instructions Current inpatient/outpatient. Discharge instructions are currently unavailable. Plan of Care Current inpatient/outpatient. The plan of care is currently unavailable. Functional Status No functional status information available. Allergies, Adverse Reactions, Alerts Allergen Type Severity Reaction Status Last Updated Penicillins ([id number]) Allergy Intermediate Rash Active 04/04/17 Immunizations Immunization Event Date Type Not Given Reason Dose Number Lot Number Clinical Lab Clerk Pneumococcal conj, 13 Valent Vaccine (Adult) 03/14/17 Administered 1 Query Response on File Recorded Date/Time Hx Pneumococcal Vaccination No 03/24/15 4:19pm Hx Influenza Vac This Flu Season No 03/24/15 4:19pm Vital Signs Ambulatory Vital Signs Vital Response Date/Time Height 6 ft 04/04/2017 1:55pm Weight 189 lbs 3 oz 04/04/2017 1:55pm Temperature, Temporal 98.7 degrees F 04/04/2017 1:55pm Blood Pressure, Sitting, Right Arm 128/80 mm Hg 04/04/2017 1:55pm Pulse Rate 91 bpm 04/04/2017 1:55pm Respiration Rate 14 bpm 04/04/2017 1:55pm Body Surface Area 2.10 m2 04/04/2017 1:55pm Body Mass Index 25.7 kg/m2 04/04/2017 1:55pm Pulse Oximetry Pulse Oximetry 04/04/2017 1:55pm Results Laboratory Results Test Name Result Units Flags Reference Collection Date/Time Result Date/ Time Comments Urine Microalbumin 0.7 mg/dL <1.9 07/27/2016 10:33am 07/27/2016 10: 56am Sodium Level 141 mEq/L 135-145 11/01/2016 11:10am 11/01/2016 11:48am Potassium Level 4.4 mEq/L 3.5-5.1 11/01/2016 11:10am 11/01/2016 11: 48am Chloride Level 106 mEq/L 98-113 11/01/2016 11:10am 11/01/2016 11:48am Carbon Dioxide Level 25 mEq/L 20-31 11/01/2016 11:10am 11/01/2016 11: 51am Anion Gap 10 mEq/L 7-16 11/01/2016 11:10am 11/01/2016 11:51am Blood Urea Nitrogen 16 mg/dL 8.0-21.0 11/01/2016 11:10a11/01/2016 11: 55am Random Glucose 92 mg/dL 70-115 11/01/2016 11:11/01/2016 12:00pm Creatinine 0.8 mg/dl 0.57-1.11 11/01/2016 11:10a11/01/2016 11:54am Estimated GFR (Non- > 60 11/01/2016 11:2016 11:54am NORMAL eGFR: >=60 ml/min/1.73 m2 KIDNEY DISEASE: < 60 ml/min/1.73 m2 KIDNEY FAILURE: < 15 ml/min/1.73 m2 SOURCE: NKDEP (National Kidney Disease Education Program).NIH.GOV Calcium Level 9.7 mg/dL 8.6-10.6 11/01/2016 11:10a11/01/2016 11:49am Aspartate Amino Transf (AST/SGOT) 17 IU/L 5-34 11/01/2016 11:11/01 11:55am Alanine Aminotransferase (ALT/SGPT) 16 IU/L 6-55 11/01/2016 11:10a09/2016 11:57am Alkaline Phosphatase 75 IU/L 40-150 11/01/2016 11:11/01/2016 11: 54am Total Bilirubin 0.4 mg/dL 0.3-1.2 11/01/2016 11:10a11/01/2016 11: 54am PLEASE NOTE NEW REFERENCE RANGES OF 10/07/16. Total Protein 6.9 gm/dL 6.0-8.3 11/01/2016 11:10a11/01/2016 11:50am Albumin 4.1 gm/dL 3.4-4.8 11/01/2016 11:11/01/2016 11:48am Total Cholesterol 180 mg/dL < 200 11/01/2016 11:11/01/2016 11: 55am Triglycerides Level 324 mg/dL H <150 11/01/2016 11:11/01/2016 12: 00pm HDL Cholesterol 49 mg/dL >60 11/01/2016 11:10a11/01/2016 11:56am LDL Cholesterol 98 mg/dL <100 11/01/2016 11:10am 11/01/2016 11:56am Very Low Density Lipoproteins 64.8 11/01/2016 11:10am 11/01/2016 11 :50am Thyroid Stimulating Hormone (TSH) 0.03 uUI/ml L 0.35-4.94 11/01/2016 11: 10am 11/01/2016 12:35pm Hemoglobin A1c 7.3 % H 11/01/2016 11:10am 11/01/2016 11:46am For the purpose of screening for the presence of diabetes. <5.7% Consistent with arnie absence of diabetes. 5.7-6.4% Consistent with increased risk for diabetes (prediabetes). >or=6.5% Consistent with diabetes. Estimated Average Glucose (eAG) 163 11/01/2016 11:10am 11/01/2016 11:33am Estimated Average Glucose (EAG) result is reported as per recommendation from the [place] Diabetes [employer] and Clinical Organizations. Ambulatory Laboratory Results Test Name Result Units Flags Reference Result Date/Time Comments Bedside Glucose 299 mg/dL H 70-105 11/20/2013 10:44am Group A Streptococcus Rapid Positive 04/04/2017 2:35pm Procedures Procedure Status Date Provider(s) ROUTINE VENIPUNCTURE [...] Completed 11/01/16 COMPREHEN METABOLIC PANEL Completed 11/01/16 Encounters Encounter Location Arrival/Admit Date Discharge/Depart Date Attending Provider Registered Practice [facility] 04/04/17 2:00pm ARIELLE FIGUEROA MD Registered Referred [facility] 11/01/16 10:44am ARIELLE FIGUEROA MD Registered Referred [facility] 07/27/16 10:22am ARIELLE FIGUEROA MD
--- OUTSIDE RECORDS SUMMARY | 2017-10-21 19:38 | XMS REPORT | Continuity of Care Document ---
Author Author [facility] Organization [facility] Address [address] [place] [address] Care Team Providers Care Agricultural Research Technician Name Role Phone DOCTOR, NONDECLARED PCP Unavailable Insurance Providers Guarantor Liz Alejandre Address [address] [address] Email [email or web address] Payer Medicare Policy Number [id number] Subscriber's Name PiliLiz Relationship 18 Self/Same As Patient Advance Directives Directive Response Recorded Date/Time Advance Directives No 03/28/11 2:13pm Living Will No 03/28/11 2:13pm Power of Accounts Administrator for Healthcare No 03/28/11 2:13pm Problems Medical [...] needed for Muscle Spasms 90 Tab 06/30/17 Cyclobenzaprine Hcl 5 Mg Tablet 5 Mg Oral Three (3) Times A Day as needed for Muscle Spasms 14 Days 42 Tab 08/23/17 Glipizide 10 Mg Tablet 10 Mg Oral Two (2) Times A Day 180 Tab 07/27 Hydrocodone/Acetaminophen ([place] 5-325 Tablet) 5 Mg-325 Mg Tablet 1 Tab Oral Every Eight (8) Hours as needed for Pain 10 Days 30 Tab 07/26/17 Hydrocodone/Acetaminophen ([place] 5-325 Tablet) 5 Mg-325 Mg Tablet 1 Tab Oral Every Eight (8) Hours as needed for Pain 14 Days 42 Tab 08/23/17 Levofloxacin 500 Mg Tablet 500 Mg Oral [...] 5 Mg Oral As Directed Discontinued Hydrocodone/Acetaminophen ([place] 5-325 Tablet) 5 Mg-325 Mg Tablet, 1 [...] Date/Time Onset Date Status Alcohol use None 08/23/2017 9:52pm Not Applicable Not Applicable Recreational drug use None 08/23/2017 9:52pm Not Applicable Not Applicable Smoking Status Start Date Stop Date Never Smoker Hospital Discharge Instructions Current inpatient/outpatient. Discharge instructions are currently unavailable. Plan of Care Current inpatient/outpatient. The plan of care is currently unavailable. Functional Status No functional status information available. Allergies, Adverse Reactions, Alerts Allergen Type Severity Reaction Status Last Updated Penicillins ([id number]) Allergy Intermediate Rash Active 08/23/17 Immunizations Immunization Event Date Type Not Given Reason Dose Number Lot Number Marketing Content Coordinator Pneumococcal conj, 13 Valent Vaccine (Adult) 03/14/17 Administered 1 Zoster Vaccine 12/26/16 Administered 1 Query Response on File Recorded Date/Time Hx Pneumococcal Vaccination No 03/24/15 4:19pm Hx Influenza Vac This Flu Season No 03/24/15 4:19pm Vital Signs Ambulatory Vital Signs Vital Response Date/Time Height 5 ft 2 in 08/23/2017 10:54am Weight 186 lbs 7.970 oz 08/23/2017 10:54am Pulse Rate 70 bpm 08/23/2017 10:54am Respiration Rate 18 bpm 08/23/2017 10:54am Body Surface Area 1.96 m2 08/23/2017 10:54am Body Mass Index 34.1 kg/m2 08/23/2017 10:54am Pulse Oximetry Pulse Oximetry 08/23/2017 10:54am Results Laboratory Results Test Name Result Units Flags Reference Collection Date/Time Result Date/ Time Comments Sodium Level 141 mEq/L 135-145 11/01/2016 11:10am 11/01/2016 11:48am Potassium Level 4.4 mEq/L 3.5-5.1 11/01/2016 11:10a11/01/2016 11: 48am Chloride Level 106 mEq/L 98-113 11/01/2016 11:10a11/01/2016 11:48am Carbon Dioxide Level 25 mEq/L 20-31 11/01/2016 11:10am 11/01/2016 11: 51am Anion Gap 10 mEq/L 7-16 11/01/2016 11:10a11/01/2016 11:51am Blood Urea Nitrogen 16 mg/dL 8.0-21.0 11/01/2016 11:10a11/01/2016 11: 55am Random Glucose 92 mg/dL 70-115 11/01/2016 11:10a11/01/2016 12:00pm Creatinine 0.8 mg/dl 0.57-1.11 11/01/2016 11:10a11/01/2016 [...] Albumin 4.1 gm/dL 3.4-4.8 11/01/2016 11:11/01/2016 11:48am Cholesterol Level 180 mg/dL < 200 11/01/2016 11:11/01/2016 11: [...] is reported as per recommendation from the [place] [employer] and Clinical Organizations. Ambulatory Laboratory Results Test Name Result Units Flags Reference Result Date/Time Comments Bedside Glucose 299 mg/dL H 70-105 11/20/2013 10:44am Group A Streptococcus Rapid Negative 07/26/2017 2:15pm Influenza Type A (Rapid) Negative 07/26/2017 2:14pm Influenza Type B (Rapid) Negative 07/26/2017 2:14pm Procedures Procedure Status Date Provider(s) ROUTINE VENIPUNCTURE Completed 11/01/16 LIPID PANEL Completed 11/01/16 ASSAY THYROID STIM HORMONE Completed 11/01/16 GLYCOSYLATED HEMOGLOBIN TEST Completed 11/01/16 COMPREHEN METABOLIC PANEL Completed 11/01/16 X-RAY EXAM OF ELBOW Completed 06/30/17 X-RAY EXAM NECK SPINE 4/5VWS Completed 07/12/17 X-ray of left elbow, two views Completed 06/30/17 ARIELLE FIGUEROA MD X-ray of cervical spine, four views Completed 07/12/17 ALIA STEINBERG MD Magnetic resonance imaging of cervical spine without contrast Completed 08/19 ALIA STEINBERG MD Encounters Encounter Location Arrival/Admit Date Discharge/Depart Date Attending Provider Registered Practice [facility] 08/23/17 10:30am ALIA STEINBERG MD Office Visit Ortho [address] 08/23/17 10:30am ALIA STEINBERG MD Registered Referred [facility] 08/19/17 1:17pm ALIA STEINBERG MD Office Visit Family Med [address] - [facility] 07/26/17 1:00pm ARIELLE FIGUEROA MD Office Visit Ortho [address] 07/26/17 8:00am ALIA STEINBERG MD Registered Referred [facility] 07/12/17 9:23am ALIA STEINBERG MD Office Visit Ortho [address] 07/12/17 9:00am ALIA STEINBERG MD Office Visit Family Med [address] - [place] 07/07/17 10:00am ARIELLE FIGUEROA MD Registered Referred [facility] 06/30/17 4:42pm ARIELLE FIGUEROA MD Office Visit Family Med [address] - [place] 06/30/17 3:15pm ARIELLE FIGUEROA MD Office Visit Family Med [address] - [facility] 04/04/17 2:00pm ARIELLE FIGUEROA MD Office Visit Family Med [address] - [facility] 02/01/17 4:00pm ARIELLE FIGUEROA MD Office Visit Family Med [address] [facility] 11/09/16 9:15am ARIELLE FIGUEROA MD Registered Referred [facility] 11/01/16 10:44am ARIELLE FIGUEROA MD Office Visit Family Med [address] [facility] 11/01/16 9:30am ARIELLE FIGUEROA MD Office Visit Family Med [address] [facility] 10/07/16 1:45pm ARIELLE FIGUEROA MD Office Visit Family Med [address] - [facility] 08/25/16 10:00am ARIELLE FIGUEROA MD
--- OUTSIDE RECORDS SUMMARY | 2017-10-21 19:39 | XMS REPORT | Continuity of Care Document ---
Author Author [facility] Organization [facility] Address [address] [place] [address] Care Team Providers Care Frozen Foods Manager Name Role Phone UNKNOWN PCP Unavailable Insurance Providers Guarantor Liz Alejandre Address [address] [place] [address] Email [email or web address] Payer Medicare Policy Number [id number] Subscriber's Name Liz Alejandre Relationship 18 Self/Same As Patient Payer Medicaid [place] Policy Number [id number] Subscriber's Name Liz Alejandre Relationship 18 Self/Same As Patient Advance Directives Directive Response Recorded Date/Time Advance Directives No 03/28/11 2:13pm Living Will No 03/28/11 2:13pm Power of Business Unit Leader for Healthcare No 03/28/11 2:13pm Problems Medical [...] Route Directions Days Qty Instructions Start Date Benzonatate (Tessalon Perle) 100 Mg Capsule 200 Mg Oral Three (3) Times A Day as needed for Cough 60 Capule 02/01/17 Glipizide 10 Mg Tablet 10 Mg Oral Two (2) Times A Day 180 Tab 07/27 Levofloxacin (Levaquin) 500 Mg Tablet 500 Mg Oral Daily 10 Days 10 Tab 02/01/17 Levothyroxine Sodium 137 Mcg Tablet 137 Mcg [...] Date/Time Onset Date Status Alcohol use None 02/07/2017 1:25pm Not Applicable Not Applicable Recreational drug use None 02/07/2017 1:25pm Not Applicable Not Applicable Smoking Status Start Date Stop Date Never Smoker Hospital Discharge Instructions Current inpatient/outpatient. Discharge instructions are currently unavailable. Plan of Care Current inpatient/outpatient. The plan of care is currently unavailable. Functional Status No functional status information available. Allergies, Adverse Reactions, Alerts Allergen Type Severity Reaction Status Last Updated Penicillins ([id number]) Allergy Intermediate Rash Active 02/01/17 Immunizations Query Response on File Recorded Date/Time Hx Pneumococcal Vaccination No 03/24/15 4:19pm Hx Influenza Vac This Flu Season No 03/24/15 4:19pm Vital Signs Ambulatory Vital Signs Vital Response Date/Time Height 6 ft 02/01/2017 4:11pm Weight 191 lbs 02/01/2017 4:11pm Temperature, Temporal 99.6 degrees F 02/01/2017 4:11pm Blood Pressure, Sitting, Right Arm 122/72 mm Hg 02/01/2017 4:11pm Pulse Rate 84 bpm 02/01/2017 4:11pm Respiration Rate 12 bpm 02/01/2017 4:11pm Body Surface Area 2.11 m2 02/01/2017 4:11pm Body Mass Index 25.9 kg/m2 02/01/2017 4:11pm Pulse Oximetry Pulse Oximetry 02/01/2017 4:11pm Results Laboratory Results Test Name Result Units Flags Reference Collection Date/Time Result Date/ Time Comments Urine Microalbumin 0.7 mg/dL <1.9 07/27/2016 10:33am 07/27/2016 10: 56am Sodium Level 141 mEq/L 135-145 11/01/2016 11:10a11/01/2016 11:48am Potassium Level 4.4 mEq/L 3.5-5.1 11/01/2016 11:10a11/01/2016 11: 48am Chloride Level 106 mEq/L 98-113 11/01/2016 11:10a11/01/2016 11:48am Carbon Dioxide Level 25 mEq/L 20-31 11/01/2016 11:10a11/01/2016 11: 51am Anion Gap 10 mEq/L 7-16 11/01/2016 11:10a11/01/2016 11:51am Blood Urea Nitrogen 16 mg/dL 8.0-21.0 11/01/2016 11:10a11/01/2016 11: 55am Random Glucose 92 mg/dL 70-115 11/01/2016 11:10a11/01/2016 12:00pm Creatinine 0.8 mg/dl 0.57-1.11 11/01/2016 11:11/01/2016 11:54am Estimated GFR (Non- > 60 11/01/2016 [...] is reported as per recommendation from the [place] [employer] and Clinical Organizations. Ambulatory Laboratory [...] Attending Provider Registered Practice [facility] 02/01/17 4:00pm ARIELLE FIGUEROA MD Registered Referred [facility] 11/01/16 10:44am ARIELLE FIGUEROA MD Registered Referred [facility] 07/27/16 10:22am ARIELLE FIGUEROA MD
--- OUTSIDE RECORDS SUMMARY | 2017-10-21 19:39 | XMS REPORT | Continuity of Care Document ---
Author Author [facility] Organization [facility] Address [address] [place] [address] Care Team Providers Care Paint Department Supervisor Name Role Phone ARIELLE FIGUEROA MD PCP Insurance Providers Guarantor Liz Alejandre Address [address] [place] [address] Email [email or web address] Payer Medicare Policy Number [id number] Subscriber's Name Liz Alejandre Relationship 18 Self/Same As Patient Advance Directives Directive Response Recorded Date/Time Advance Directives No 03/28/11 2:13pm Living Will No 03/28/11 2:13pm Power of Personal Financial Advisor for Healthcare Rosangela DECKER 09/19/17 9:34am Problems Medical Problem Onset Date Status Acquired [...] Times A Day 180 Tab 07/27 Hydrocodone/Acetaminophen ([place] 5-325 Tablet) 5 Mg-325 Mg Tablet 1 Tab Oral Every Eight (8) Hours as needed for Pain 10 Days 30 Tab 07/26/17 Hydrocodone/Acetaminophen ([place] 5-325 Tablet) 5 Mg-325 Mg Tablet 1 Tab Oral Every Eight (8) Hours as needed for Pain 14 Days 42 Tab 08/23/17 Hydrocodone/Acetaminophen ([place] 5-325 Tablet) 5 Mg-325 Mg Tablet 1 Tab Oral Every Eight (8) Hours as needed for Pain 10 Days 30 Tab 09/12/17 Levofloxacin 500 Mg Tablet 500 Mg Oral [...] 5 Mg Oral As Directed Discontinued Hydrocodone/Acetaminophen ([place] 5-325 Tablet) 5 Mg-325 Mg Tablet, 1 [...] Date/Time Onset Date Status Alcohol use None 09/25/2017 6:17pm Not Applicable Not Applicable Recreational drug use None 09/25/2017 6:17pm Not Applicable Not Applicable Smoking Status Start Date Stop Date Never Smoker Hospital Discharge Instructions Current inpatient/outpatient. Discharge instructions are currently unavailable. Plan of Care Current inpatient/outpatient. The plan of care is currently unavailable. Functional Status No functional status information available. Allergies, Adverse Reactions, Alerts Allergen Type Severity Reaction Status Last Updated Penicillins ([id number]) Allergy Intermediate Rash Active 09/12/17 Immunizations Immunization Event Date Type Not Given Reason Dose Number Lot Number Cad Intern Pneumococcal conj, 13 Valent Vaccine (Adult) 03/14/17 Administered 1 Zoster Vaccine 12/26/16 Administered 1 Query Response on File Recorded Date/Time Hx Pneumococcal Vaccination No 03/24/15 4:19pm Hx Influenza Vac This Flu Season No 03/24/15 4:19pm Vital Signs Ambulatory Vital Signs Vital Response Date/Time Height 5 ft 2 in 09/12/2017 9:20am Weight 186 lbs 7.970 oz 09/12/2017 9:20am Pulse Rate 84 bpm 09/12/2017 9:20am Respiration Rate 20 bpm 09/12/2017 9:20am Body Surface Area 1.96 m2 09/12/2017 9:20am Body Mass Index 34.1 kg/m2 09/12/2017 9:20am Pulse Oximetry Pulse Oximetry 09/12/2017 9:20am Results Laboratory Results Test Name Result Units Flags Reference Collection Date/Time Result Date/ Time Comments Sodium Level 141 mEq/L 135-145 11/01/2016 11:10a11/01/2016 [...] is reported as per recommendation from the [place] Diabetes [employer] and Clinical Organizations. Ambulatory Laboratory [...] X-RAY EXAM NECK SPINE 4/5VWS Completed 07/12/17 MRI NECK SPINE W/O DYE Completed 08/19/17 X-ray of left elbow, two views Completed 06/30/17 ARIELLE FIGEUROA MD X-ray of cervical spine, four views Completed 07/12/17 ALIA STEINBERG MD Magnetic resonance imaging of cervical spine without contrast Completed 08/19 ALIA STEINBERG MD Pad Tens Circular Completed 09/22/17 ALIA STEINBERG MD Encounters Encounter Location Arrival/Admit Date Discharge/Depart Date Attending Provider Registered Rec[facility] 09/22/17 2:58pm ALIA STEINBERG MD Registered Practice [facility] 09/12/17 11:00am ALIA STEINBERG MD Office Visit Ortho [address] 09/12/17 11:00am ALIA STEINBERG MD Office Visit Ortho [address] 08/23/17 10:30am ALIA STEINBERG MD Registered Referred [facility] 08/19/17 1:17pm ALIA STEINBERG MD Office Visit Family Med [address] [facility] [place] 07/26/17 1:00pm ARIELLE FIGUEROA MD Office Visit Ortho [address] 07/26/17 8:00am ALIA STEINBERG MD Registered Referred [facility] 07/12/17 9:23am ALIA STEINBERG MD Office Visit Ortho [address] 07/12/17 9:00am ALIA STEINBERG MD Office Visit Family Med [address] - [facility] 07/07/17 10:00am ARIELLE FIGUEROA MD Registered Referred [facility] 06/30/17 4:42pm ARIELLE FIGUEROA MD Office Visit Family Med [address] - [facility] 06/30/17 3:15pm ARIELLE FIGUEROA MD Office Visit Family Med [address] - [facility] 04/04/17 2:00pm ARIELLE FIGUEROA MD Office Visit Family Med [address] - [facility] 02/01/17 4:00pm ARIELLE FIGUEROA MD Office Visit Family Med [address] - [facility] 11/09/16 9:15am ARIELLE FIGUEROA MD Registered Referred [facility] 11/01/16 10:44am ARIELLE FIGUEROA MD Office Visit Family Med [address] - [facility] 11/01/16 9:30am ARIELLE FIGUEROA MD Office Visit Family Med [address] - [place] 10/07/16 1:45pm ARIELLE FIGUEROA MD
--- OUTSIDE RECORDS SUMMARY | 2017-10-21 19:40 | XMS REPORT | Continuity of Care Document ---
Author Author [facility] Organization [facility] Address [address] [place] [address] Phone Unavailable Care Team Providers Care Safety Companion Name Role Phone UNKNOWN PCP Unavailable Insurance Providers Guarantor Liz Escobar Address [address] [facility] [place] [address] Email [email or web address] Payer Medicare Policy Number [id number] Subscriber's Name Liz Escobar Relationship 18 Self/Same As Patient Payer Medicaid [place] Policy Number [id number] Subscriber's Name Liz Escobar Relationship 18 Self/Same As Patient Advance Directives Directive Response Recorded Date/Time Advance Directives No 03/28/11 2:13pm Living Will No 03/28/11 2:13pm Power of Executive Compensation Analyst for Healthcare No 03/28/11 2:13pm Problems Medical Problem Onset Date Status Acquired hypothyroidism 04/16/2013 Acute Acute upper respiratory infection Unknown Acute Benign essential hypertension Unknown Acute Diabetes mellitus type 2 in obese 04/16/2013 Acute Dry skin dermatitis Unknown Acute Hyperlipidemia Unknown Acute Seborrheic dermatitis of scalp Unknown Acute Medications Current Home Medications Medication Dose Units Route Directions Days Qty Instructions Start Date Fenofibrate Nanocrystallized (Tricor) 48 Mg Tablet 48 Mg Oral Daily 90 Tab Glipizide 10 Mg Tablet 10 Mg Oral Two (2) Times A Day 180 Tab 07/27 Levothyroxine Sodium 112 Mcg Tablet 112 Mcg Oral Daily 90 Tab Lisinopril 10 Mg Tablet 10 Mg Oral Daily 90 Tab Metformin Hcl 500 Mg Tablet 1,000 Mg Oral Two (2) Times A Day 120 Tab 06/01/16 Metoprolol Succinate 25 Mg Tab.er.24h 25 Mg Oral Daily 90 Tab 07/27 Pravastatin Sodium 40 Mg Tablet 40 Mg Oral Bedtime 90 Tab Past Home Medications Medication Directions Ordered Status [...] Needed as needed for Cough 03/19/15 Discontinued Ciclopirox (Penlac) 8 % Debbie, 8 [...] Tab, 48 Mg Oral Daily 04/17/13 Discontinued Fluticasone Propionate (Flonase Allergy Relief*) 50 [...] Mg Oral Daily 09/30/15 Discontinued Levothyroxine Sodium (Levothyroxine Sodium*) 112 Mcg [...] 10 Mg Oral Daily Discontinued Metformin Hcl (Metformin Hcl*) 500 Mg [...] Apply External Once 12/04/13 Discontinued Pravastatin Sodium (Pravastatin Sodium*) 40 Mg [...] Date/Time Onset Date Status Alcohol use None 07/27/2016 5:03pm Not Applicable Not Applicable Recreational drug use None 07/27/2016 5:03pm Not Applicable Not Applicable Smoking Status Start Date Stop Date Never Smoker Hospital Discharge Instructions Current inpatient/outpatient. Discharge instructions are currently unavailable. Plan of Care Current inpatient/outpatient. The plan of care is currently unavailable. Functional Status No functional status information available. Allergies, Adverse Reactions, Alerts Allergen Type Severity Reaction Status Last Updated Penicillins ([id number]) Allergy Intermediate Rash Active 07/27/16 Immunizations Query Response on File Recorded Date/Time Hx Pneumococcal Vaccination No 03/24/15 4:19pm Hx Influenza Vac This Flu Season No 03/24/15 4:19pm Vital Signs Ambulatory Vital Signs Vital Response Date/Time Height 5 ft 2 in 07/27/2016 9:46am Weight 181 lbs 07/27/2016 9:46am Temperature, Temporal 97.6 degrees F 07/27/2016 9:46am Blood Pressure, Sitting, Right Arm 122/80 mm Hg 07/27/2016 9:46am Pulse Rate 87 bpm 07/27/2016 9:46am Respiration Rate 14 bpm 07/27/2016 9:46am Body Surface Area 1.93 m2 07/27/2016 9:46am Body Mass Index 33.1 kg/m2 07/27/2016 9:46am Pulse Oximetry Pulse Oximetry 07/27/2016 9:46am Results Laboratory Results Test Name Result Units [...] Program).NIH.GOV Calcium Level 9.0 mg/dL 8.6-10.6 07/27/2016 10:3307/27/2016 11:09am Aspartate Amino Transf (AST/SGOT) 19 IU/L 5-34 07/27/2016 10:3307/27 11:15am Alanine Aminotransferase (ALT/SGPT) 26 IU/L 6-55 07/27/2016 10:3304/2016 11:19am Alkaline Phosphatase 124 IU/L 40-150 07/27/2016 10:3307/27/2016 11: 13am Total Bilirubin 0.7 mg/dL 0.2-1.2 07/27/2016 10:3307/27/2016 11: 13am Total Protein 7.1 gm/dL 6.0-8.3 07/27/2016 10:3307/27/2016 11:09am Albumin 4.3 gm/dL 3.4-4.8 07/27/2016 10:3307/27/2016 11:09am Total Cholesterol 235 mg/dL H < 200 07/27/2016 10:3307/27/2016 11: 14am Triglycerides Level 348 mg/dL H <150 07/27/2016 10:3307/27/2016 11: 09am HDL Cholesterol 55 mg/dL >60 [...] is reported as per recommendation from the [place] [employer] and Clinical Organizations. Ambulatory Laboratory Results Test Name Result Units Flags Reference Result Date/Time Comments Bedside Glucose 299 mg/dL H 70-105 11/20/2013 10:44am Procedures Procedure Status Date Provider(s) ROUTINE VENIPUNCTURE Completed 08/12/15 ASSAY THYROID STIM HORMONE Completed 08/12/15 GLYCOSYLATED HEMOGLOBIN TEST Completed 08/12/15 COMPREHEN METABOLIC PANEL Completed 08/12/15 Encounters Encounter Location Arrival/Admit Date Discharge/Depart Date Attending Provider Registered Referred [facility] 07/27/16 10:22am ARIELLE FIGUEROA MD Office Visit Family Med [address] - [facility] 07/27/16 9:45am ARIELLE FIGUEROA MD Registered Practice [facility] 07/27/16 9:45am ARIELLE FIGUEROA MD Office Visit Family Med [address] - [facility] 03/26/16 8:30am ARIELLE FIGUEROA MD Office Visit Family Med [address] - [facility] 09/30/15 3:00pm ARIELLE FIGUEROA MD Registered Referred [facility] 08/12/15 11:15am ARIELLE FIGUEROA MD Office Visit Family Med [address] [facility] 08/12/15 10:00am ARIELLE FIGUEROA MD Office Visit Family Med [address] [facility] 07/29/15 11:00am ARIELLE FIGUEROA MD
--- OUTSIDE RECORDS SUMMARY | 2017-10-21 19:40 | XMS REPORT | Continuity of Care Document ---
Author Author [facility] Organization [facility] Address [address] [place] [address] Phone Unavailable Care Team Providers Care Guard Chief Name Role Phone UNKNOWN PCP Unavailable Insurance Providers Guarantor Liz Escobar Address [address] [facility] [place] [address] Email [email or web address] Payer Medicaid [place] Title 19 Policy Number [id number] Subscriber's Name Liz Escobar Relationship 18 Self/Same As Patient Effective Date 12 Payer Medicare Policy Number [id number] Subscriber's Name Liz Escobar Relationship 18 Self/Same As Patient Advance Directives Directive Response Recorded Date/Time Advance Directives No 03/28/11 2:13pm Living Will No 03/28/11 2:13pm Power of Manager Stylist for Healthcare No 03/28/11 2:13pm Problems Medical [...] Route Directions Days Qty Instructions Start Date Canagliflozin (Invokana) 300 Mg Tablet 300 Mg Oral Daily 90 Tab 06/11 Cephalexin (Keflex) 500 Mg Capsule 500 Mg Oral Every Twelve (12) Hours 20 Capule 07/28/16 Fenofibrate Nanocrystallized (Tricor) 48 Mg Tablet 48 [...] 80 Mg Oral Daily 90 Tab 07/28/16 Past Home Medications Medication Directions Ordered Status [...] Date/Time Onset Date Status Alcohol use None 08/16/2016 11:47am Not Applicable Not Applicable Recreational drug use None 08/16/2016 11:47am Not Applicable Not Applicable Smoking Status Start Date Stop Date Never Smoker Hospital Discharge Instructions Current inpatient/outpatient. Discharge instructions are currently unavailable. Plan of Care Current inpatient/outpatient. The plan of care is currently unavailable. Functional Status No functional status information available. Allergies, Adverse Reactions, Alerts Allergen Type Severity Reaction Status Last Updated Penicillins ([id number]) Allergy Intermediate Rash Active 07/28/16 Immunizations Query Response on File Recorded Date/Time Hx Pneumococcal Vaccination No 03/24/15 4:19pm Hx Influenza Vac This Flu Season No 03/24/15 4:19pm Vital Signs Ambulatory Vital Signs Vital Response Date/Time Height 5 ft 2 in 07/28/2016 12:08pm Weight 180 lbs 15.963 oz 07/28/2016 12:08pm Temperature, Temporal 98.5 degrees F 07/28/2016 12:08pm Blood Pressure, Sitting, Right Arm 120/80 mm Hg 07/28/2016 12:08pm Pulse Rate 78 bpm 07/28/2016 12:08pm Respiration Rate 14 bpm 07/28/2016 12:08pm Body Surface Area 1.93 m2 07/28/2016 12:08pm Body Mass Index 33.1 kg/m2 07/28/2016 12:08pm Pulse Oximetry Pulse Oximetry 07/28/2016 12:08pm Results Laboratory Results Test Name Result Units [...] is reported as per recommendation from the [place] [employer] and Clinical Organizations. Ambulatory Laboratory [...] [place] 07/28/16 11:30am ARIELLE FIGUEROA MD Registered Practice [facility] 07/28/16 11:30am ARIELLE FIGUEROA MD Registered Referred [facility] 07/27/16 10:22am ARIELLE FIGUEROA MD Office Visit Family Med [address] - [facility] 07/27/16 9:45am ARIELLE FIGUEROA MD Office Visit Family Med [address] - [facility] 03/26/16 8:30am ARIELLE FIGUEROA MD Office Visit Family Med [address] - [facility] 09/30/15 3:00pm ARIELLE FIGUEROA MD Recent Diagnosis Diabetes mellitus type 2 in obese Tonsillitis
--- OUTSIDE RECORDS SUMMARY | 2017-10-21 19:41 | XMS REPORT | Continuity of Care Document ---
Author Author [facility] Organization [facility] Address [address] [place] [address] Care Team Providers Care Junior Engineer Name Role Phone UNKNOWN PCP Unavailable Insurance Providers Guarantor Liz Alejandre Address [address] [address] Email [email or web address] Payer Medicare Policy Number [id number] Subscriber's Name Liz Alejandre Relationship 18 Self/Same As Patient Payer Medicaid [place] Policy Number [id number] Subscriber's Name Liz Alejandre Relationship 18 Self/Same As Patient Advance Directives Directive Response Recorded Date/Time Advance Directives No 03/28/11 2:13pm Living Will No 03/28/11 2:13pm Power of Cylinder Batcher for Healthcare No 03/28/11 2:13pm Problems Medical [...] Times A Day 180 Tab 07/27 Hydrocodone/Acetaminophen ([place] 5-325 Tablet) 5 Mg-325 Mg Tablet 1 Tab Oral Every Eight (8) Hours as needed for Pain 10 Days 30 Tab 07/12/17 Levothyroxine Sodium 137 Mcg Tablet 137 Mcg Oral Daily Before Breakfast 90 Tab 05/09/17 Lisinopril 10 Mg Tablet 10 Mg Oral Daily 90 Days 90 Tab 01/06/17 Metformin Hcl 1,000 Mg Tablet 1,000 Mg Oral Two (2) Times A Day 180 Tab 04/20/17 Methylprednisolone (Medrol) 4 Mg Tab.ds.pk 1 Tab Oral As Directed 1 Pack 07/12/17 Metoprolol Succinate 25 Mg Tab.er.24h 25 Mg Oral Daily 90 Tab 07/27 Pravastatin Sodium 80 Mg Tablet 80 Mg Oral Daily 90 Tab 01/06/17 Sitagliptin Phosphate (Januvia) 100 Mg Tablet 100 Mg Oral Daily 90 Tab 04/20/17 Past Home Medications Medication Directions Ordered Status [...] Date/Time Onset Date Status Alcohol use None 07/12/2017 11:44am Not Applicable Not Applicable Recreational drug use None 07/12/2017 11:44am Not Applicable Not Applicable Smoking Status Start Date Stop Date Never Smoker Hospital Discharge Instructions Current inpatient/outpatient. Discharge instructions are currently unavailable. Plan of Care Current inpatient/outpatient. The plan of care is currently unavailable. Functional Status No functional status information available. Allergies, Adverse Reactions, Alerts Allergen Type Severity Reaction Status Last Updated Penicillins ([id number]) Allergy Intermediate Rash Active 07/12/17 Immunizations Immunization Event Date Type Not Given Reason Dose Number Lot Number Sandwich Artist Pneumococcal conj, 13 Valent Vaccine (Adult) 03/14/17 Administered 1 Zoster Vaccine 12/26/16 Administered 1 Query Response on File Recorded Date/Time Hx Pneumococcal Vaccination No 03/24/15 4:19pm Hx Influenza Vac This Flu Season No 03/24/15 4:19pm Vital Signs Ambulatory Vital Signs Vital Response Date/Time Height 5 ft 2 in 07/12/2017 8:54am Weight 189 lbs 07/12/2017 8:54am Blood Pressure, Sitting, Right Arm 122/69 mm Hg 07/12/2017 8:54am Pulse Rate 100 bpm 07/12/2017 8:54am Respiration Rate 18 bpm 07/12/2017 8:54am Body Surface Area 1.98 m2 07/12/2017 8:54am Body Mass Index 34.6 kg/m2 07/12/2017 8:54am Pulse Oximetry Pulse Oximetry 07/12/2017 8:54am Results Laboratory Results Test Name Result Units Flags Reference Collection Date/Time Result Date/ Time Comments Urine Microalbumin 0.7 mg/dL <1.9 07/27/2016 10:33am 07/27/2016 10: 56am Sodium Level 141 mEq/L 135-145 11/01/2016 11:10a11/01/2016 11:48am Potassium Level 4.4 mEq/L 3.5-5.1 11/01/2016 11:11/01/2016 11: 48am Chloride Level 106 mEq/L 98-113 11/01/2016 11:10a11/01/2016 11:48am Carbon Dioxide Level 25 mEq/L 20-31 11/01/2016 11:10a11/01/2016 11: 51am Anion Gap 10 mEq/L 7-16 11/01/2016 11:10a11/01/2016 11:51am Blood Urea Nitrogen 16 mg/dL 8.0-21.0 11/01/2016 11:11/01/2016 11: 55am Random Glucose 92 mg/dL 70-115 [...] 10/07/16. Total Protein 6.9 gm/dL 6.0-8.3 11/01/2016 11:10am 11/01/2016 11:50am Albumin 4.1 gm/dL 3.4-4.8 11/01/2016 11:10am 11/01/2016 11:48am Total Cholesterol 180 mg/dL < 200 11/01/2016 11:10am 11/01/2016 11: 55am Triglycerides Level 324 mg/dL H <150 11/01/2016 11:10am 11/01/2016 12: 00pm HDL Cholesterol 49 mg/dL >60 11/01/2016 11:10am 11/01/2016 11:56am LDL Cholesterol 98 mg/dL <100 11/01/2016 [...] is reported as per recommendation from the [place] [employer] and Clinical Organizations. Ambulatory Laboratory [...] 11/01/16 X-RAY EXAM OF ELBOW Completed 06/30/17 X-ray of left elbow, two views Completed 06/30/17 ARIELLE FIGUEROA MD X-ray of cervical spine, four views Completed 07/12/17 ALIA ESTEBAN MD Encounters Encounter Location Arrival/Admit Date Discharge/Depart Date Attending Provider Registered Referred [facility] 07/12/17 9:23am ALIA ESTEBAN MD Registered Practice [facility] 07/12/17 9:00am ALIA ESTEBAN MD Office Visit Ortho [address] 07/12/17 9:00am ALIA ESTEBAN MD Office Visit Family Med [address] - [facility] 07/07/17 10:00am ARIELLE FIGUEROA MD Registered Referred [facility] 06/30/17 4:42pm ARIELLE FIGUEROA MD Office Visit Family Med [address] - [facility] 06/30/17 3:15pm ARIELLE FIGUEROA MD Office Visit Family Med [address] - [facility] 04/04/17 2:00pm ARIELLE FIGUEROA MD Office Visit Family Med [address] - [facility] 02/01/17 4:00pm ARIELLE FIGUEROA MD Office Visit Family Med [address] - [facility] 11/09/16 9:15am ARIELLE FIGUEROA MD Registered Referred [facility] 11/01/16 10:44am ARIELLE FIGUEROA MD Office Visit Family Med [address] - [facility] 11/01/16 9:30am ARIELLE FIGUEROA MD Office Visit Family Med [address] - [facility] 10/07/16 1:45pm ARIELLE FIGUEROA MD Office Visit Family Med [address] - [facility] 08/25/16 10:00am ARIELLE FIGUEROA MD Office Visit Family Med [address] - [facility] 07/28/16 11:30am ARIELLE FIGUEROA MD Registered Referred [facility] 07/27/16 10:22am ARIELLE FIGUEROA MD Office Visit Family Med [address] - [facility] 07/27/16 9:45am ARIELLE FIGUEROA MD
--- OUTSIDE RECORDS SUMMARY | 2017-10-21 19:41 | XMS REPORT | Continuity of Care Document ---
Author Author [facility] Organization [facility] Address [address] [place] [address] Phone Unavailable Care Team Providers Care Documentation Designer Name Role Phone UNKNOWN PCP Unavailable Insurance Providers Guarantor Liz Escobar Address [address] [place] [address] Email [email or web address] Payer Medicaid [place] Title 19 Policy Number [id number] Subscriber's Name Liz Escobar Relationship 18 Self/Same As Patient Effective Date 12 Payer Medicare Policy Number [id number] Subscriber's Name Liz Escobar Relationship 18 Self/Same As Patient Advance Directives Directive Response Recorded Date/Time Advance Directives No 03/28/11 2:13pm Living Will No 03/28/11 2:13pm Power of Master Scheduler for Healthcare No 03/28/11 2:13pm Problems Medical [...] 300 Mg Oral Daily 90 Tab 06/11 Fenofibrate Nanocrystallized (Tricor) 48 Mg Tablet 48 [...] Needed as needed for Cough 03/19/15 Discontinued Cephalexin (Keflex) 500 Mg Capsule, 500 [...] Date/Time Onset Date Status Alcohol use None 08/25/2016 11:00am Not Applicable Not Applicable Recreational drug use None 08/25/2016 11:00am Not Applicable Not Applicable Smoking Status Start Date Stop Date Never Smoker Hospital Discharge Instructions Current inpatient/outpatient. Discharge instructions are currently unavailable. Plan of Care Current inpatient/outpatient. The plan of care is currently unavailable. Functional Status No functional status information available. Allergies, Adverse Reactions, Alerts Allergen Type Severity Reaction Status Last Updated Penicillins ([id number]) Allergy Intermediate Rash Active 08/25/16 Immunizations Query Response on File Recorded Date/Time Hx Pneumococcal Vaccination No 03/24/15 4:19pm Hx Influenza Vac This Flu Season No 03/24/15 4:19pm Vital Signs Ambulatory Vital Signs Vital Response Date/Time Height 5 ft 2 in 08/25/2016 9:47am Weight 179 lbs 08/25/2016 9:47am Temperature, Temporal 98.0 degrees F 08/25/2016 9:47am Blood Pressure, Sitting, Left Arm 112/74 mm Hg 08/25/2016 9:47am Pulse Rate 93 bpm 08/25/2016 9:47am Respiration Rate 14 bpm 08/25/2016 9:47am Body Surface Area 1.92 m2 08/25/2016 9:47am Body Mass Index 32.7 kg/m2 08/25/2016 9:47am Pulse Oximetry Pulse Oximetry 08/25/2016 9:47am Results Laboratory Results Test Name Result Units [...] is reported as per recommendation from the [place] Diabetes Association and Clinical Organizations. Ambulatory Laboratory [...] Visit Family Med [address] - [facility] 08/25/16 10:00am ARIELLE FIGUEROA MD Registered Practice [facility] 08/25/16 10:00am ARIELLE FIGUEROA MD Office Visit Family Med [address] - [facility] 07/28/16 11:30am ARIELLE FIGUEROA MD Registered [facility] 07/27/16 10:22am ARIELLE FIGUEROA MD Office Visit Family Med [address] - [facility] 07/27/16 9:45am ARIELLE FIGUEROA MD Office Visit Family Med [address] - [facility] 03/26/16 8:30am ARIELLE FIGUEROA MD Office Visit Family Med [address] - [facility] 09/30/15 3:00pm ARIELLE FIGUEROA MD Recent Diagnosis Diabetes mellitus type 2 in obese
--- OUTSIDE RECORDS SUMMARY | 2017-10-21 19:42 | XMS REPORT | Continuity of Care Document ---
Author Author [facility] Organization [facility] Address [address] [place] [id number] Support Name Relationship Address Phone ALIA STEINBERG MD Caregiver [address] [place] [address] [employer] Next Of Kin [address] [address] Insurance Providers Guarantor Liz Alejandre Address [address] [address] Email [email or web address] Payer Medicare Policy Number [id number] Subscriber's Name Liz Alejandre Relationship 18 Self/Same As Patient Payer Medicaid [place] Policy Number [id number] Subscriber's Name PiliLiz Relationship 18 Self/Same As Patient Advance Directives Directive Response Recorded Date/Time Advance Directives No 03/28/11 2:13pm Living Will No 03/28/11 2:13pm Power of Park Interpretive Specialist for Healthcare No 03/28/11 2:13pm Problems Medical [...] Times A Day 180 Tab 07/27 Hydrocodone/Acetaminophen ([place] 5-325 Tablet) 5 Mg-325 Mg Tablet 1 [...] 5 Mg Oral As Directed Discontinued Hydrocodone/Acetaminophen ([place] 5-325 Tablet) 5 Mg-325 Mg Tablet, 1 [...] Onset Date Status Alcohol use None 07/26/2017 9:22pm Not Applicable Not Applicable Recreational drug use None 07/26/2017 9:22pm Not Applicable Not Applicable Smoking Status Start Date Stop Date Never Smoker Hospital Discharge Instructions Current inpatient/outpatient. Discharge instructions are currently unavailable. Plan of Care Current inpatient/outpatient. The plan of care is currently unavailable. Functional Status No functional status information available. Allergies, Adverse Reactions, Alerts Allergen Type Severity Reaction Status Last Updated Penicillins ([id number]) Allergy Intermediate Rash Active 07/26/17 Immunizations Immunization Event Date Type Not Given Reason Dose Number Lot Number Oncology Patient Navigator Pneumococcal conj, 13 Valent Vaccine (Adult) 03/14/17 [...] is reported as per recommendation from the [place] Diabetes Association and Clinical Organizations. Ambulatory Laboratory [...] Visit Family Med [address] - [facility] 07/26/17 1:00pm ARIELLE FIGUEROA MD Office Visit Ortho [address]-[facility] 07/26/17 8:00am ALIA STEINBERG MD Registered Referred [facility] 07/12/17 9:23am ALIA STEINBERG MD Office Visit Ortho [address]-[facility] 07/12/17 9:00am ALIA STEINBERG MD Office Visit Family Med [address] - [facility] 07/07/17 10:00am ARIELLE FIGUEROA MD Registered Referred [facility] 06/30/17 4:42pm ARIELLE FIGUEROA MD Office Visit Family Med [address] - [facility] 06/30/17 3:15pm ARIELLE FIGUEROA MD Office Visit Family Med [address] - [facility] 04/04/17 2:00pm ARIELLE FIGUEROA MD Office Visit Family Med [address] - [facility] 02/01/17 4:00pm ARIELLE FIGUEROA MD Office Visit Family Med [address] - [facility] 11/09/16 9:15am ARIELLE FIGUEROA MD Registered Referred [facility] 11/01/16 10:44am ARIELLE FIGUEROA MD Office Visit Family Med [address] - [facility] 11/01/16 9:30am ARIELLE FIGUEROA MD Office Visit Family Med [address] - [facility] 10/07/16 1:45pm ARIELLE FIGUEROA MD Office Visit Family Med [address] - [facility] 08/25/16 10:00am ARIELLE FIGUEROA MD Office Visit Family Med [address] - [facility] 07/28/16 11:30am ARIELLE FIGUEROA MD Registered Referred [facility] 07/27/16 10:22am ARIELLE FIGUEROA MD Office Visit Family Med [address] - [facility] 07/27/16 9:45am ARIELLE FIGUEROA MD
--- OUTSIDE RECORDS SUMMARY | 2017-10-21 19:42 | XMS REPORT | Continuity of Care Document ---
Author Author [facility] Organization [facility] Address [address] [place] [address] Care Team Providers Care International Recruiter Name Role Phone UNKNOWN PCP Unavailable Insurance Providers Guarantor Liz Alejandre Address [address] [address] Email [email or web address] Payer Medicare Policy Number [id number] Subscriber's Name Liz Alejandre Relationship 18 Self/Same As Patient Payer Medicaid [place] Policy Number [id number] Subscriber's Name PiliLiz Relationship 18 Self/Same As Patient Advance Directives Directive Response Recorded Date/Time Advance Directives No 03/28/11 2:13pm Living Will No 03/28/11 2:13pm Power of Acid Cutter for Healthcare No 03/28/11 2:13pm Problems Medical [...] (2) Times A Day 180 Tab 04/20/17 Metoprolol Succinate 25 Mg Tab.er.24h 25 Mg [...] Date/Time Onset Date Status Alcohol use None 07/08/2017 10:56am Not Applicable Not Applicable Recreational drug use None 07/08/2017 10:56am Not Applicable Not Applicable Smoking Status Start Date Stop Date Never Smoker Hospital Discharge Instructions Current inpatient/outpatient. Discharge instructions are currently unavailable. Plan of Care Current inpatient/outpatient. The plan of care is currently unavailable. Functional Status No functional status information available. Allergies, Adverse Reactions, Alerts Allergen Type Severity Reaction Status Last Updated Penicillins ([id number]) Allergy Intermediate Rash Active 07/07/17 Immunizations Immunization Event Date Type Not Given Reason Dose Number Lot Number Adult Caregiver Pneumococcal conj, 13 Valent Vaccine (Adult) 03/14/17 Administered 1 Zoster Vaccine 12/26/16 Administered 1 Query Response on File Recorded Date/Time Hx Pneumococcal Vaccination No 03/24/15 4:19pm Hx Influenza Vac This Flu Season No 03/24/15 4:19pm Vital Signs Ambulatory Vital Signs Vital Response Date/Time Height 6 ft 07/07/2017 10:23am Weight 189 lbs 2 oz 07/07/2017 10:23am Temperature, Temporal 98.1 degrees F 07/07/2017 10:23am Blood Pressure, Sitting, Left Arm 122/68 mm Hg 07/07/2017 10:23am Pulse Rate 82 bpm 07/07/2017 10:23am Respiration Rate 16 bpm 07/07/2017 10:23am Body Surface Area 2.10 m2 07/07/2017 10:23am Body Mass Index 25.6 kg/m2 07/07/2017 10:23am Pulse Oximetry Pulse Oximetry 07/07/2017 10:23am Results Laboratory Results Test Name Result Units Flags Reference Collection Date/Time Result Date/ Time Comments Urine Microalbumin 0.7 mg/dL <1.9 07/27/2016 10:33am 07/27/2016 10: 56am Sodium Level 141 mEq/L 135-145 11/01/2016 11:10am 11/01/2016 11:48am Potassium Level 4.4 mEq/L 3.5-5.1 11/01/2016 11:11/01/2016 11: 48am Chloride Level 106 mEq/L 98-113 11/01/2016 11:11/01/2016 11:48am Carbon Dioxide Level 25 mEq/L 20-31 11/01/2016 11:11/01/2016 11: 51am Anion Gap 10 mEq/L 7-16 11/01/2016 11:11/01/2016 11:51am Blood Urea Nitrogen 16 mg/dL 8.0-21.0 11/01/2016 11:11/01/2016 11: 55am Random Glucose 92 mg/dL 70-115 11/01/2016 11:11/01/2016 12:00pm Creatinine 0.8 mg/dl 0.57-1.11 11/01/2016 11:11/01/2016 [...] 11:11/01/2016 11:50am Albumin 4.1 gm/dL 3.4-4.8 11/01/2016 11:10am [...] is reported as per recommendation from the [place] Diabetes Association and Clinical Organizations. Ambulatory Laboratory [...] two views Completed 06/30/17 ARIELLE FIGUEROA MD Encounters Encounter Location Arrival/Admit Date Discharge/Depart Date Attending Provider Registered Practice [facility] 07/07/17 10:00am ARIELLE FIGUEROA MD Office Visit Family Med [address] - [facility] 07/07/17 10:00am ARIELLE FIGUEROA MD Registered Referred [facility] 06/30/17 4:42pm AIRELLE FIGUEROA MD Office Visit Family Med [address] - [facility] 06/30/17 3:15pm ARIELLE FIGUEROA MD Office Visit Family Med [address] - [facility] 04/04/17 2:00pm ARIELLE FIGUEROA MD Office Visit Family Med [address] - [facility] 02/01/17 4:00pm ARIELLE FIGUEROA MD Office Visit Family Med [address] - [facility] 11/09/16 9:15am ARIELLE FIGUEROA MD Registered Referred [facility] 11/01/16 10:44am ARIELLE FIGUEROA MD Office Visit Family Med [address] - [facility] 11/01/16 9:30am ARIELLE FIGUEROA MD Office Visit Family Med [address] - [facility] 10/07/16 1:45pm ARIELLE FIGUEROA MD Office Visit Family Med [address] - [facility] 08/25/16 10:00am ARIELLE FIGUEROA MD Office Visit Family Med [address] - [facility] 07/28/16 11:30am ARIELLE FIGUEROA MD Registered Referred [facility] 07/27/16 10:22am ARIELLE FIGUEROA MD Office Visit Family Med [address] - [facility] 07/27/16 9:45am ARIELLE FIGUEROA MD
--- OUTSIDE RECORDS SUMMARY | 2017-10-21 19:43 | XMS REPORT | Continuity of Care Document ---
Author Author [facility] Organization [facility] Address [address] [place] [address] Care Team Providers Care Belt Cleaner Name Role Phone UNKNOWN PCP Unavailable Insurance Providers Guarantor Liz Alejandre Address [address] [address] Email [email or web address] Payer Medicare Policy Number [id number] Subscriber's Name Liz Alejandre Relationship 18 Self/Same As Patient Payer Medicaid [place] Policy Number [id number] Subscriber's Name PiliLiz Relationship 18 Self/Same As Patient Advance Directives Directive Response Recorded Date/Time Advance Directives No 03/28/11 2:13pm Living Will No 03/28/11 2:13pm Power of Carpet Journeyman for Healthcare No 03/28/11 2:13pm Problems Medical [...] Date/Time Onset Date Status Alcohol use None 07/07/2017 11:30am Not Applicable Not Applicable Recreational drug use None 07/07/2017 11:30am Not Applicable Not Applicable Smoking Status Start Date Stop Date Never Smoker Hospital Discharge Instructions Current inpatient/outpatient. Discharge instructions are currently unavailable. Plan of Care Current inpatient/outpatient. The plan of care is currently unavailable. Functional Status No functional status information available. Allergies, Adverse Reactions, Alerts Allergen Type Severity Reaction Status Last Updated Penicillins ([id number]) Allergy Intermediate Rash Active 07/07/17 Immunizations Immunization Event Date Type Not Given Reason Dose Number Lot Number Fermenter Champagne Pneumococcal conj, 13 Valent Vaccine (Adult) 03/14/17 [...] is reported as per recommendation from the [place] [employer] and Clinical Organizations. Ambulatory Laboratory [...] Registered Practice [facility] 07/07/17 10:00am ARIELLE FIUGEROA MD Office Visit Family Med [address] - [facility] 07/07/17 10:00am ARIELLE FIGUEROA MD Registered Referred [facility] 06/30/17 4:42pm ARIELLE FIGUEROA MD Office Visit Family Med [address] - [facility] 06/30/17 3:15pm ARIELLE FIGUEROA MD Office Visit Family Med [address] - [facility] 04/04/17 2:00pm ARIELLE FIGUEROA MD Office Visit Family Med [address] - [facility] 02/01/17 4:00pm ARIELLE FIGUEROA MD Office Visit Family Med [address] - [facility] 11/09/16 9:15am ARIELLE FIGUEROA MD Registered Referred [facility] 11/01/16 10:44am ARIELLE FIGUEROA MD Office Visit Family Med [address] - [facility] 11/01/16 9:30am ARIELLE FIGUEROA MD Office Visit Family Med [address] - [facility] 10/07/16 1:45pm ARIELLE FIGUEROA MD Office Visit Family Med [address] - [facility] 08/25/16 10:00am ARIELLE FIGUEROA MD Office Visit Family Med [address] - [facility] 07/28/16 11:30am ARIELLE FIGUEROA MD Registered Referred [facility] 07/27/16 10:22am ARIELLE FIGUEROA MD Office Visit Family Med [address] - [facility] 07/27/16 9:45am ARIELLE FIGUEROA MD
--- OUTSIDE RECORDS SUMMARY | 2017-10-21 19:43 | XMS REPORT | Continuity of Care Document ---
Author Author [facility] Organization [facility] Address [address] [place], [place] [id number] Phone Unavailable Care Team Providers Care Clay Thrower Name Role Phone UNKNOWN PCP Unavailable Insurance Providers Guarantor Liz Escobar Address [address] [phone] Email [email or web address] Payer Medicare Policy Number [id number] Subscriber's Name Liz Escobar Relationship 18 Self/Same As Patient Advance Directives Directive Response Recorded Date/Time Advance Directives No 03/28/11 2:13pm Living Will No 03/28/11 2:13pm Power of Head Of Store Operations for Healthcare No 03/28/11 2:13pm Problems Medical [...] Mg Tablet 500 Mg Oral Daily 10 Tab Levothyroxine Sodium 137 Mcg Tablet 137 Mcg [...] Date/Time Onset Date Status Alcohol use None 11/09/2016 11:04am Not Applicable Not Applicable Recreational drug use None 11/09/2016 11:04am Not Applicable Not Applicable Smoking Status Start Date Stop Date Never Smoker Hospital Discharge Instructions Current inpatient/outpatient. Discharge instructions are currently unavailable. Plan of Care Current inpatient/outpatient. The plan of care is currently unavailable. Functional Status No functional status information available. Allergies, Adverse Reactions, Alerts Allergen Type Severity Reaction Status Last Updated Penicillins ([id number]) Allergy Intermediate Rash Active 11/09/16 Immunizations Query Response on File Recorded Date/Time Hx Pneumococcal Vaccination No 03/24/15 4:19pm Hx Influenza Vac This Flu Season No 03/24/15 4:19pm Vital Signs Ambulatory Vital Signs Vital Response Date/Time Height 5 ft 2 in 11/09/2016 9:56am Weight 182 lbs 1 oz 11/09/2016 9:56am Temperature, Temporal 98.0 degrees F 11/09/2016 9:56am Blood Pressure, Sitting, Right Arm 118/72 mm Hg 11/09/2016 9:56am Pulse Rate 70 bpm 11/09/2016 9:56am Respiration Rate 14 bpm 11/09/2016 9:56am Body Surface Area 1.94 m2 11/09/2016 9:56am Body Mass Index 33.3 kg/m2 11/09/2016 9:56am Pulse Oximetry Pulse Oximetry 11/09/2016 9:56am Results Laboratory Results Test Name Result Units [...] 55am Random Glucose 92 mg/dL 70-115 11/01/2016 11:10am 11/01/2016 12:00pm Creatinine 0.8 mg/dl 0.57-1.11 11/01/2016 11:10am 11/01/2016 11:54am Estimated GFR (Non- > 60 11/01/2016 11:10a2016 11:54am NORMAL eGFR: >=60 ml/min/1.73 m2 KIDNEY DISEASE: < 60 ml/min/1.73 m2 KIDNEY FAILURE: < 15 ml/min/1.73 m2 SOURCE: NKDEP (National Kidney Disease Education Program).NIH.GOV Calcium Level 9.7 mg/dL 8.6-10.6 11/01/2016 11:10am 11/01/2016 11:49am Aspartate Amino Transf (AST/SGOT) 17 IU/L 5-34 11/01/2016 11:10am 11/01 11:55am Alanine Aminotransferase (ALT/SGPT) 16 IU/L 6-55 11/01/2016 11:10a09/2016 11:57am Alkaline Phosphatase 75 IU/L 40-150 11/01/2016 11:11/01/2016 11: 54am Total Bilirubin 0.4 mg/dL 0.3-1.2 11/01/2016 11:10a11/01/2016 11: 54am PLEASE NOTE NEW REFERENCE RANGES OF 10/07/16. Total Protein 6.9 gm/dL 6.0-8.3 11/01/2016 11:10a11/01/2016 11:50am Albumin 4.1 gm/dL 3.4-4.8 11/01/2016 11:10a11/01/2016 11:48am Total Cholesterol 180 mg/dL < 200 [...] diabetes. Estimated Average Glucose (eAG) 163 11/01/2016 11:10a11/01/2016 11:33am Estimated Average Glucose (EAG) result is reported as per recommendation from the [place] [employer] and Clinical Organizations. Ambulatory Laboratory [...] [facility] [address] [facility] [place] 11/09/16 9:15am ARIELLE FIGUEROA MD Registered Practice [facility] 11/09/16 9:15am ARIELLE FIGUEROA MD Registered Referred [facility] 11/01/16 10:44am ARIELLE FIGUEROA MD Office Visit [facility] [address] [place] 11/01/16 9:30am ARIELLE FIGUEROA MD Office Visit [facility] [address] - [place] 10/07/16 1:45pm ARIELLE FIGUEROA MD Office Visit [facility] [address] - [place] 08/25/16 10:00am ARIELLE FIGUEROA MD Office Visit [facility] [address] - [place] 07/28/16 11:30am ARIELLE FIGUEROA MD Registered Referred [facility] 07/27/16 10:22am ARIELLE FIGUEROA MD Office Visit [facility] [address] [facility] [place] 07/27/16 9:45am ARIELLE FIGUEROA MD Office Visit [facility] [address] [facility] [place] 03/26/16 8:30am ARIELLE FIGUEROA MD Recent Diagnosis Acute bacterial tonsillitis
--- OUTSIDE RECORDS SUMMARY | 2017-10-21 19:44 | XMS REPORT | Continuity of Care Document ---
Author Author [facility] Organization [facility] Address [address] [phone] Phone Unavailable Care Team Providers Care Sales And Service Consultant Name Role Phone UNKNOWN Unavailable Unavailable Insurance Providers Payer Name Policy Number Subscriber Name Relationship Medicare [id number] Liz Escobar 18 Self/Same As Patient Medicaid [place] 19 [id number] Liz Escobar 18 Self/Same As Patient Advance Directives Directive Response Recorded Date/Time Advance Directives No 03/28/11 2:13pm Living Will No 03/28/11 2:13pm Power of Tree [employer] Farmer for Healthcare No 03/28/11 2:13pm Problems Active Problems Medical Problem Onset Date Status Acquired hypothyroidism 04/16/2013 Acute Acute upper respiratory infection Unknown Acute Benign essential hypertension Unknown Acute Diabetes mellitus type 2 in obese 04/16/2013 Acute Dry skin dermatitis Unknown Acute Hyperlipidemia Unknown Acute Seborrheic dermatitis of scalp Unknown Acute Medications Current Home Medications Medication Dose Units Route Directions Days/Qty Instructions Start Date Pravastatin Sodium 40 Mg 40 Mg Oral Daily At Bedtime 30 07/29/15 Ciclopirox 8 % 8 % External As Directed 1 Apply to affected nails daily. Remove with alcohol every 7 days. 08/12/15 Levothyroxine Sodium 112 Mcg 112 Mcg Oral Daily 30 08/14/15 Glipizide 5 Mg 5 Mg Oral As Directed 150 TAKE 3 TABLETS IN THE MORNING AND 2 TABLET AT NIGHT 10/20/15 Fenofibrate 48 Mg 48 Mg Oral Daily 90 12/10/15 Lisinopril 10 Mg 10 Mg Oral Daily 90 02/02/16 Metoprolol Succinate 25 Mg 25 Mg Oral Daily 90 02/03/16 Triamcinolone Acetonide (Kenalog) 0.1 1 Bernadette External Two (2) Times A Day 15 03/26/16 Metformin Hcl 500 Mg 1,000 Mg Oral Two (2) Times A Day 120 06/01/16 Past Home Medications Medication Directions Ordered Status [Synthroid Unk Dose] , Oral Daily 03/28/11 Discontinued [White Bp Pill] , Oral Daily 03/28/11 Discontinued Metformin Hcl 500 Mg Tab, 1000 Mg Oral Two (2) Times A Day 04/16/13 Discontinued Metoprolol Succinate 25 Mg Tab, 25 Mg Oral Daily 04/16/13 Discontinued Levothyroxine Sodium 125 Mcg Tab, 125 Mcg Oral Daily 04/16/13 Discontinued Lisinopril 10 Mg Tab, 10 Mg Oral Daily 04/16/13 Discontinued Pravastatin Sodium 20 Mg Tab, 40 Mg Oral Bedtime 04/16/13 Discontinued Fenofibrate 48 Mg Tab, 48 Mg Oral Daily 04/17/13 Discontinued Azithromycin 250 Mg Tab, 250 Mg Oral As Directed 04/30/13 Discontinued Azithromycin 250 Mg Tab, 250 Mg Oral As Directed 06/12/13 Discontinued Methylprednisolone 4 Mg Tab, 4 Mg Oral As Directed 06/12/13 Discontinued Metformin Hcl 500 Mg Tab, 1000 Mg Oral Two (2) Times A Day 06/21/13 Discontinued Metoprolol Succinate 25 Mg Tab, 25 Mg Oral Daily 06/21/13 Discontinued Levothyroxine Sodium 125 Mcg Tab, 125 Mcg Oral Daily 06/21/13 Discontinued Lisinopril 10 Mg Tab, 10 Mg Oral Daily 06/21/13 Discontinued Pravastatin Sodium 20 Mg Tab, 40 Mg Oral Bedtime 06/21/13 Discontinued Fenofibrate 48 Mg Tab, 48 Mg Oral Daily 06/21/13 Discontinued Metoprolol Succinate 25 Mg Tab, 25 Mg Oral Daily 09/17/13 Discontinued Glipizide 5 Mg Tab, 5 Mg Oral As Directed 11/20/13 Discontinued Trimethoprim/Sulfamethoxazole 1 Tab Tab, 1 Tab Oral Two (2) Times A Day 11/20 Discontinued Hydroxyzine Hcl 25 Mg Tab, 25 Mg Oral 3 Times Daily As Needed as needed for Anxiety 11/20/13 Discontinued Pravastatin Sodium 20 Mg Tab, 40 Mg Oral Bedtime 12/03/13 Discontinued Metformin Hcl 500 Mg Tab, 500 Mg Oral As Directed 12/03/13 Discontinued Fenofibrate 48 Mg Tab, 48 Mg Oral Daily 12/03/13 Discontinued Permethrin 5 % Cre, 1 Apply External Once 12/04/13 Discontinued Hydroxyzine Hcl 25 Mg Tab, 25 Mg Oral Every 6 Hours As Needed as needed for Anxiety 12/04/13 Discontinued Clindamycin Hcl 300 Mg Cap, 300 Mg Oral Every 8 Hours 12/04/13 Discontinued Glipizide 5 Mg Tab, 5 Mg Oral As Directed 03/01/14 Discontinued Lisinopril 10 Mg Tab, 10 Mg Oral Daily 03/01/14 Discontinued Metoprolol Succinate 25 Mg Tab, 25 Mg Oral Daily 03/01/14 Discontinued Levothyroxine Sodium 125 Mcg Tab, 125 Mcg Oral Daily 03/01/14 Discontinued Fenofibrate 48 Mg Tab, 48 Mg Oral Daily 04/12/14 Discontinued Terbinafine Hcl 250 Mg Tab, 250 Mg Oral Daily 02/13/15 Discontinued Azithromycin 250 Mg Tab, 250 Mg Oral As Directed as needed for Infection Discontinued Promethazine Hcl/Codeine 120 Ml Syrp, 5 Ml Oral Daily At Bedtime as needed for Cough 02/13/15 Discontinued Azithromycin 250 Mg Tab, 250 Mg Oral As Directed as needed for Infection Discontinued Benzonatate 100 Mg Cap, 100 Mg Oral Every 8 Hours As Needed as needed for Cough 03/19/15 Discontinued Benzonatate 100 Mg Cap, 100 Mg Oral Every 8 Hours As Needed as needed for Cough 06/02/15 Discontinued Azithromycin 250 Mg Tab, 250 Mg Oral As Directed as needed for Infection 10/10 Discontinued Doxycycline Hyclate 100 Mg Cap, 100 Mg Oral Two (2) Times A Day 06/06/15 Discontinued Methylprednisolone Acetate 80 Mg/Ml Inj, 80 Mg Intramuscular Once 06/06/15 Discontinued Fluticasone Propionate 50 Mcg/Act Spr, 2 Sprays Nasal Daily 06/06/15 Discontinued Doxycycline Hyclate 100 Mg Cap, 100 Mg Oral Two (2) Times A Day 07/29/15 Discontinued Metformin Hcl 500 Mg Tab, 1000 Mg Oral Two (2) Times A Day 07/29/15 Discontinued Glipizide 5 Mg Tab, 5 Mg Oral As Directed 07/29/15 Discontinued Lisinopril 10 Mg Tab, 10 Mg Oral Daily 07/29/15 Discontinued Metoprolol Succinate 25 Mg Tab, 25 Mg Oral Daily 07/29/15 Discontinued Levothyroxine Sodium 125 Mcg Tab, 125 Mcg Oral Daily 07/29/15 Discontinued Fenofibrate 48 Mg Tab, 48 Mg Oral Daily 08/12/15 Discontinued Glipizide 5 Mg Tab, 5 Mg Oral As Directed 08/14/15 Discontinued Levofloxacin 500 Mg Tab, 500 Mg Oral Daily 09/30/15 Discontinued Social History Social History Problem Response Recorded Date/Time Alcohol use None 06/26/2016 4:16pm Recreational drug use None 06/26/2016 4:16pm Lives with Family 06/26/2016 4:16pm Query Response Start Date Stop Date Smoking Status Never Smoker Hospital Discharge Instructions Current inpatient/outpatient. Discharge instructions are currently unavailable. Plan of Care Instructions/Education Provided Instructions from visit on: 03/26/16 1. TAKE SHORT SHOWER2. DAMP DRY3. APPLY LOTION OR VASELINE IMMEDIATELY AFTER SHOWER4. APPLY PRESCRIPTION CREAM UP TO TWO TIMES A DAY Prescriptions Functional Status Query Response Date Recorded Mental status Appropriate affect June 26, 2016 4:16pm Judgment normal June 03, 2015 5:04pm Alert and oriented x3 Yes December 04, 2013 5:54pm Person Yes December 04, 2013 5:[address]pm Place Yes December 04, 2013 5:54pm Time Yes December 04, 2013 5:54pm Alert Yes August 12, 2015 2:13pm Mood/Affect Normal June 26, 2013 9:29am Cognition Normal June 03, 2015 5:04pm Allergies, Adverse Reactions, Alerts Allergen Type Severity Reaction Status Last Updated Penicillins ([id number]) Allergy Intermediate RASH Active 03/26/16 Immunizations No immunization records. Vital Signs Acute Vital Signs Vital Response Date/Time Height 5 ft 2 in Weight 187 lb Body Mass Index 34.2 kg/m^2 Ambulatory Vital Signs Vital Response Date/Time Height 5 ft 2 in 03/26/2016 8:38am Weight 187 lbs 03/26/2016 8:38am Temperature, Oral 97.8 degrees F 03/26/2016 8:38am Blood Pressure, Sitting, Right Arm 132/78 mm Hg 03/26/2016 8:38am Pulse Rate 78 bpm 03/26/2016 8:38am Respiration Rate 16 bpm 03/26/2016 8:38am Body Surface Area 1.96 m2 03/26/2016 8:38am Body Mass Index 34.2 kg/m2 03/26/2016 8:38am Pulse Oximetry Pulse Oximetry 03/26/2016 8:38am Results Pending Laboratory Results Test Name Collection Date/Time Ambulatory Laboratory Results Test Name Result Units Flags Reference Result Date/Time Comments Bedside Glucose 299 mg/dL H 70-105 11/20/2013 10:44am Procedures Procedure Status Date Provider(s) Blood Sugar,Fingerstick*- Offi Completed 11/20/13 Encounters Encounter Location Arrival/Admit Date Discharge/Depart Date Attending Provider Office Visit Family [facility] [address] - [facility] 03/26/16 8:30am ARIELLE FIGUEROA MD Registered Practice [facility] 03/26/16 8:30am ARIELLE FIGUEROA MD Office Visit [facility] [address] - [facility] 09/30/15 3:00pm ARIELLE FIGUEROA MD Registered [facility] 08/12/15 11:15am ARIELLE FIGUEROA MD Office Visit [facility] [address] - [facility] 08/12/15 10:00am ARIELLE FIGUEROA MD Office Visit [facility] [address] - [facility] 07/29/15 11:00am ARIELLE FIGUEROA MD Recent Diagnosis Dry skin dermatitis
== END 2017-10-21 19:27 | disposition home or self-care (01) ==
LOC: ER 18:52
DX: L02.413 Cutaneous abscess of right upper limb (principal); E11.9 Type 2 diabetes mellitus without complications; Z91.14 Patient's other noncompliance with medication regimen; Z88.0 Allergy status to penicillin
CPT/HCPCS: 10060